=== PATIENT | female | born 1960 | race Caucasian/White ===

== ENCOUNTER → 2024-05-05 | Outpatient (CLI) | payer OTHER, MEDICARE, SELFPAY ==
[2024-05-05 17:33] LABS: Basophils # (Auto) 0.1 Thou/mm3 (0.0-0.2); Basophils % (Auto) 1 % (0-2.5); Eosinophils # (Auto) 0.6 Thou/mm3 (0.0-0.5); Eosinophils % (Auto) 11 % (0-10); Hematocrit 36.6 % (36.0-46.0); Hemoglobin 12.1 g/dL (12.0-16.0); Immature Granulocytes % (Auto) 0 % (0-0); Immature Granulocytes Auto 0.01 Thou/mm3 (0.00-0.00); Lymphocytes # (Auto) 1.8 Thou/mm3 (1.0-4.8); Lymphocytes % (Auto) 32 % (10-50); Mean Corpuscular HGB Conc 33.1 g/dl (31.0-37.0); Mean Corpuscular Hemoglobin 30.3 pg (25.0-35.0); Mean Corpuscular Volume 92 fL (80-100); Monocytes # (Auto) 0.4 Thou/mm3 (0.0-0.8); Monocytes % (Auto) 8 % (0-12); Neutrophils # (Auto) 2.6 Thou/mm3 (1.8-7.7); Neutrophils % (Auto) 48 % (37-80); Nucleated Red Blood Cell % 0 /100 WBC (0); Platelet Count 180 Thou/mm3 (140-440); RDW Standard Deviation 40.9 fL (36.4-46.3); White Blood Count 5.5 Thou/mm3 (3.6-11.0)
[2024-05-05 17:50] LABS: Alanine Aminotransferase 17 U/L (10-49); Albumin, Serum 4.6 gm/dL (3.4-4.8); Alkaline Phosphatase 68 U/L (46-116); Anion Gap 8 (7-16); Aspartate Amino Transferase 16 U/L (0-34); BUN/Creatinine Ratio 19 Ratio (12-20); Bilirubin,Total 0.4 mg/dL (0.3-1.2); Blood Urea Nitrogen 17 mg/dL (9-23); Calcium 9.4 mg/dL (8.3-10.6); Calcium (Corrected) 9.4 mg/dL (8.5-10.1); Carbon Dioxide 30.5 mMol/L (20.0-31.0); Chloride 102 mMol/L (98-107); Creatinine (Component) 0.9 mg/dL (0.6-1.3); Globulin 2.3 gm/dL (2.3-3.5); Glucose 93 mg/dL (74-106); Osmolality,Calculated 280 (275-295); Potassium 3.8 mMol/L (3.4-5.1); Sodium 140 mMol/L (136-145); Total Protein 6.9 gm/dL (5.7-8.2); eGFR > 60 See Note
== END | disposition home or self-care (01) ==
PROVIDERS: PCP Family Medicine; Referring Provider Internal Medicine Hematology & Oncology; Visit Provider Internal Medicine Hematology & Oncology
DX: D72.829 Elevated white blood cell count, unspecified (principal)
CPT/HCPCS: 36415; 80053; 85025

== ENCOUNTER 2024-06-02 22:23 | Emergency (ER) | payer OTHER, MEDICARE, SELFPAY ==
[2024-06-02 22:27] VITALS: BMI 23.2
[2024-06-02 22:42] VITALS: BP 154/99; PULSE 80; RESP 18; TEMP 36.9; O2SAT 96
--- NOTE | 2024-06-02 22:49 | XR_ITS ---
Examination: PA lateral chest 2 views TECHNIQUE: Upright PA and lateral chest 2 views Examination time: June 02, 2024 at 11:04 PM INDICATIONS: Chest pain today. FINDINGS: Normal heart size No pneumonia or pulmonary edema The osseous structures are intact IMPRESSION: No active disease
--- NOTE | 2024-06-02 22:50 | PD.EDRME ---
Rapid Medical Screening Exam RME Arrival date/time: 06/02/24 22:23 64-year-old female with a history of leukemia presents to the emergency room with a chief complaint of shakiness, chest pain, cough, congestion x 1 week. I have greeted and performed a focused initial assessment of this patient. A comprehensive ED assessment and evaluation of the patient, analysis of all test results, and completion of the medical decision making process will be conducted by additional ED providers. Chief Complaint: Flu Like Symptoms Vital signs: Vital Signs Temperature 98.5 F 06/02/24 22:42 Pulse Rate 80 06/02/24 22:42 Respiratory Rate 18 06/02/24 22:42 Blood Pressure 154/99 H 06/02/24 22:42 Pulse Oximetry (%) 96 06/02/24 22:42 Oxygen Delivery Method Room Air 06/02/24 22:42 Vital signs reviewed by provider: Yes
[2024-06-02 23:23] LABS: Basophils # (Auto) 0.1 Thou/mm3 (0.0-0.2); Basophils % (Auto) 2 % (0-2.5); Eosinophils # (Auto) 0.5 Thou/mm3 (0.0-0.5); Eosinophils % (Auto) 9 % (0-10); Hematocrit 37.7 % (36.0-46.0); Hemoglobin 12.6 g/dL (12.0-16.0); Immature Granulocytes % (Auto) 0 % (0-0); Immature Granulocytes Auto 0.01 Thou/mm3 (0.00-0.00); Lymphocytes % (Auto) 34 % (10-50); Mean Corpuscular HGB Conc 33.4 g/dl (31.0-37.0); Mean Corpuscular Hemoglobin 30.3 pg (25.0-35.0); Mean Corpuscular Volume 91 fL (80-100); Monocytes # (Auto) 0.6 Thou/mm3 (0.0-0.8); Monocytes % (Auto) 9 % (0-12); Neutrophils # (Auto) 2.8 Thou/mm3 (1.8-7.7); Neutrophils % (Auto) 46 % (37-80); Nucleated Red Blood Cell % 0 /100 WBC (0); Platelet Count 188 Thou/mm3 (140-440); RDW Standard Deviation 42.6 fL (36.4-46.3); Red Blood Count 4.16 Miln/mm3 (4.00-5.20)
[2024-06-02 23:32] LABS: INR 0.9 (0.9-1.3); Partial Thromboplastin Time 23.1 Seconds (22.0-36.0); Prothrombin Time 10.3 Seconds (9.0-12.2)
[2024-06-02 23:34] LABS: B-Type Natriuretic Peptide 75 pg/mL (0-100)
[2024-06-02 23:35] LABS: Alanine Aminotransferase 14 U/L (10-49); Albumin, Serum 4.7 gm/dL (3.4-4.8); Alkaline Phosphatase 55 U/L (46-116); Anion Gap 7 (7-16); Aspartate Amino Transferase 21 U/L (0-34); BUN/Creatinine Ratio 18 Ratio (12-20); Bilirubin,Total 0.4 mg/dL (0.3-1.2); Blood Urea Nitrogen 16 mg/dL (9-23); Carbon Dioxide 32.1 mMol/L (20.0-31.0); Chloride 104 mMol/L (98-107); Creatinine (Component) 0.9 mg/dL (0.6-1.3); Globulin 2.4 gm/dL (2.3-3.5); Glucose 141 mg/dL (74-106); Osmolality,Calculated 288 (275-295); Potassium 4.3 mMol/L (3.4-5.1); Sodium 143 mMol/L (136-145); Total Protein 7.1 gm/dL (5.7-8.2); Troponin I < 0.020 ng/mL (0.0-0.045); eGFR > 60 See Note
[2024-06-02 23:59] LABS: Collection Type, Urine Clean Catch
[2024-06-03 00:08] LABS: Bilirubin,Urine Negative (Negative); Blood,Urine Trace (Negative); Clarity,Urine Clear (Clear/Hazy); Color,Urine Colorless (Lt Yel-Yel); Glucose, Urine Negative (Negative); Ketones,Urine Negative (Negative); Leukocyte Esterase,Urine Negative (Negative); Nitrite,Urine Negative (Negative); Protein,Urine Negative (Neg - Trace); RBC,Urine 3 /hpf (0-3); Specific Gravity,Urine 1.011 (1.001-1.035); Squamous Epithelial Cell,Urine < 1 /hpf (0-5); Urobilinogen,Urine Negative mg/dL (0.0-1.0); WBC,Urine 2 /hpf (0-5)
--- NOTE | 2024-06-03 00:31 | EDNOTE_ITS ---
Upper Respiratory Inf. RME/HPI General Chief Complaint: Flu Like Symptoms Stated Complaint: Body aches, flu like symptoms Time Seen by Provider: 06/02/24 23:32 Arrival date/time: 06/02/24 22:23 Limitations: no limitations RME / HPI RME / HPI Narrative: 06/02/24 22:23 64-year-old female with a history of leukemia presents to the emergency room with a chief complaint of shakiness, chest pain, cough, congestion x 1 week. I have greeted and performed a focused initial assessment of this patient. A comprehensive ED assessment and evaluation of the patient, analysis of all test results, and completion of the medical decision making process will be conducted by additional ED providers. ----- Dr. Cavazos's Main ED Evaluation: 64yo female with a history of leukemia presents to the ED for complaints of palpitations and shakiness. Patient states she's had sinusitis for the last one month. She states she tool phenylephrine today, which she normally does not take, and she started having palpitations and felt shaky. She also notes having back pain, a headache, dysuria, and sweating. She denies any fever, chills or any other associated symptoms. Related Data Home Medications ?Medication ?Instructions ?Recorded ?Confirmed clonazepam 0.5 mg tablet 1 mg PO QPM Pt #0 tabs 06/23/13 06/04/23 docusate sodium 100 mg capsule 250 mg PO BID Stool softener #0 06/23/13 06/04/23 (Colace) caps levothyroxine 75 mcg tablet 75 mcg PO QDAY Thyroid disorder #0 06/23/13 06/04/23 tabs pregabalin 75 mg capsule (Lyrica) 75 mg PO BID Fibromyalgia #0 caps 06/23/13 06/04/23 simvastatin 20 mg tablet 20 mg PO QPM 05/08/18 06/04/23 clonazepam 0.5 mg tablet 0.5 mg PO 2XD 06/04/23 06/04/23 dasatinib 20 mg tablet (Sprycel) 20 mg PO DAILY 06/04/23 06/04/23 Previous Rx's ?Medication ?Instructions ?Recorded polyethylene glycol 3350 17 17 g PO QDAY #119 grams 05/09/21 gram/dose oral powder (Miralax) clotrimazole 1 % topical cream 1 applic topical TID #30 grams 06/04/23 wheat dextrin 3 gram/3.5 gram oral 3 g PO BID #28 ea 06/04/23 powder packet (Benefiber Clear Sugar Free(dextrin)) peg 3350-electrolytes 236 240 ml PO Q10M #4,000 mL 06/12/23 gram-22.74 gram-6.74 gram-5.86 gram solution (Golytely) amoxicillin 875 mg-potassium 1 tab PO BID #20 tabs 06/03/24 clavulanate 125 mg tablet fluticasone propionate 50 1 spray intranasal BID 10 days #16 06/03/24 mcg/actuation nasal grams spray,suspension (Flonase Allergy Relief) Allergies Allergy/AdvReac Type Severity Reaction Status Date / Time codeine Allergy Severe Hives Verified 06/12/23 06:50 hydromorphone Allergy Severe REDDENED, Verified 06/12/23 06:50 TATIANNA Review of Systems Review of Systems Systems Reviewed: All systems reviewed, normal except as documented ED Exam General Limitations: Present no limitations General appearance: Present alert, in no apparent distress and other (very thin) Head Head exam: Present atraumatic Eye Eye exam: Present normal appearance, PERRL and EOMI ENT ENT exam: Present normal oropharynx, mucous membranes moist and other (mild bilateral maxillary sinus tenderness, no anterior cervical lymphadenopathy; no bloody nose, no trismus) Neck Neck exam: Present normal inspection, full ROM and trachea midline Chest Chest inspection: Present normal inspection and symmetric chest wall rise Respiratory Respiratory exam: Present normal lung sounds bilaterally Cardiovascular Cardiovascular exam: Present regular rate, normal rhythm and normal heart sounds Abdominal Exam Abdominal exam: Present soft; Absent mass Extremities Exam Extremities exam: Present normal inspection and full ROM Back Exam Back exam: Present normal inspection and full ROM Neurological Exam Neurological exam: Present alert, oriented X3, CN II-XII intact, normal gait and other (no facial droop, normal sensations); Absent motor sensory deficit Expanded Neurological Exam Cerebellar function: Normal: finger to nose Motor strength - LUE: 5/5 Motor strength - RUE: 5/5 Motor strength - LLE: 5/5 Motor strength - RLE: 5/5 Psychiatric Psychiatric exam: Present normal affect and normal mood Skin Skin exam: Present warm, dry, intact and pallor (mild) Course Course Course Narrative: CXR is ordered for determining the etiology of palpitations. Quality Measures none Orders Category Date Time Status EKG (ED ONLY) *Do not use* NOW Care 06/02/24 22:49 Completed EKG (ED Only) Stat Exams 06/02/24 22:49 Ordered XR chest 2V Stat Exams 06/02/24 22:49 Completed B-Type Natriuretic Peptide Stat Lab 06/02/24 22:58 Completed CBC Stat Lab 06/02/24 22:58 Completed Comprehensive Metabolic Panel Stat Lab 06/02/24 22:58 Completed Magnesium Stat Lab 06/02/24 22:58 Completed Partial Thromboplastin Time Stat Lab 06/02/24 22:58 Completed Prothrombin Time with INR Stat Lab 06/02/24 22:58 Completed Troponin I Stat Lab 06/02/24 22:58 Completed Urinalysis Stat Lab 06/02/24 23:52 Completed Amoxicillin/Pot Clav 875 [Augmentin 875] Med 06/03/24 00:39 Discontinued 1 tab PO X1 ONE Fluticasone Durga Austin 0.05% [Flonase Nasal Austin 0.05%] Med 06/03/24 00:38 Discontinued 1 spray NASAL X1 ONE Vital Signs Vital signs: Vital Signs Temperature 98.5 F 06/02/24 22:42 Pulse Rate 80 06/02/24 22:42 Respiratory Rate 18 06/02/24 22:42 Blood Pressure 154/99 H 06/02/24 22:42 Pulse Oximetry (%) 96 06/02/24 22:42 Oxygen Delivery Method Room Air 06/02/24 22:42 Pulse ox is 96% on room air, which is normal according to my interpretation. Upper Respiratory Infection Patient data External records reviewed:: [facility] previous records (Per chart review, patient was seen here on 06/12/33 for dehydration; Reviewed outpatient oncology note from 12/10/23.) Clinical information provided by:: patient Social determinants that could affect healthcare access:: none Patient has the following chronic illnesses:: leukemia How is presenting disease/condition affected by chronic disease/condition?: uneffected by Evaluation data The following diagnostics were reviewed and interpreted by me:: lab results, radiology exam(s) and EKG tracing(s) Lab and/or radiology exams considered but not ordered:: none Interpretation Summary: CBC is normal, CMP is normal, Troponin is normal, UA is unremarkble, UDS is positive for marijuana, Blood Alcohol is negative, Bedside COVID and Influenza are negative, according to my interpretation. EKG done at 2257, NSR, rate of 71, norml axis, normal intervals, no ST elevations or depressions, no STEMI, according to my interpretation. ------- [facility] Report Signed Patient: ROSA LOVETT. Record#: [id number] Birthdate: 1960 Age/Sex: 64 / F Location: [facility] Attending Dr: Ordering Physician: Arturo Cortez Date of Service: 06/02/24 Procedure(s): XR chest 2V Accession Number(s): [id number] cc: Arturo Cortez; Arsh Matamoros MD~ Examination: PA lateral chest 2 views TECHNIQUE: Upright PA and lateral chest 2 views Examination time: June 02, 2024 at 11:04 PM INDICATIONS: Chest pain today. FINDINGS: Normal heart size No pneumonia or pulmonary edema The osseous structures are intact IMPRESSION: No active disease Dictated By: Arsh Matamoros MD Signed By: <Electronically signed by Arsh Matamoros MD in OV> 06/02/24 8104 Medications / Prescriptions Medications or Prescriptions considered but not ordered:: none Medication administrations:: Medication Administration History Discontinued Medications Amoxicillin/Clavulanate Potassium (Amoxicillin/Pot Clav 875 Tablet) 1 tab PO X1 ONE Stop: 06/03/24 00:40 Last Admin: 06/03/24 00:46 Dose: 1 tab Documented By: CVL Fluticasone Propionate (Fluticasone Durga Austin 0.05% 16 Gm Btl) 1 spray NASAL X1 ONE Stop: 06/03/24 00:39 see above Consultations Consultation(s) initiated? (list below): No Diagnosis Upper Respiratory Differential Diagnosis: sinusitis and other (cold, URI, medication side effect, palpitations, arrhythmia) Most likely diagnosis given after review of the tests above:: see below Admission Indicated Admission indicated?: not indicated Admission Request Was there a request for admission?: No Disposition Plan Disposition Plan: Discharge Discharge Attestation Discharge Attestation: The patient and all family members were given an opportunity to ask questions and understood the discharge instructions. Discharge instructions specifically effects, indications for sooner follow up or return to the emergency department, and the expected course of current diagnosis. Patient condition: Stable Discharge Plan Plan Patient Disposition: HOME (Self Care) Patient condition on transfer: Stable Prescriptions/Referrals Prescriptions/Med Rec: New amoxicillin-pot clavulanate 875-125 mg tablet 1 tab PO BID Qty: 20 0RF fluticasone propionate [Flonase Allergy Relief] 50 mcg/actuation spray,suspension 1 spray intranasal BID 10 Days Qty: 16 1RF Rx Instructions: administer into each nostril No Action clonazepam 0.5 MG tablet 1 mg PO QPM Qty: 0 levothyroxine 75 mcg Tablet 75 mcg PO QDAY Qty: 0 docusate sodium [Colace] 100 MG capsule 250 mg PO BID Qty: 0 pregabalin [Lyrica] 75 MG capsule 75 mg PO BID Qty: 0 simvastatin 20 mg Tablet 20 mg PO QPM polyethylene glycol 3350 [Miralax] 17 gram/dose powder 17 g PO QDAY Qty: 119 0RF clonazepam 0.5 mg tablet 0.5 mg PO 2XD Patient Comments: TAKE 1 TABLET BY MOUTH TWICE DAILY. DO NOT TAKE WITHIN 1 HOUR OF TAKING SUBOXONE Sprycel 20 mg tablet 20 mg PO DAILY clotrimazole 1 % cream 1 applic topical TID Qty: 30 0RF Rx Instructions: Apply to skin lesion on back Benefiber Clear SF (dextrin) 3 gram/3.5 gram powder in packet 3 g PO BID Qty: 28 0RF Rx Instructions: mix into at least 4 oz water or juice before administering peg 3350-electrolytes [Golytely] 236-22.74-6.74 -5.86 gram recon soln 240 ml PO Q10M Qty: 4000 0RF Rx Instructions: until fecal effluent is clear Referrals: JoseL Chavez MD [Primary Care Provider] - In 1 week Problem List Clinical Impression: Sinusitis Patient/Caregiver Discharge Instructions Education Materials: ED Sinusitis (Antibiotic Treatment) Additional Instructions: 1. Please avoid any cough medicine or ydhy-ujy-cutvffc medicine that has Neosynephrine and Sudafed/phenylephrine. Use the Flonase as directed. 2. Please complete the antibiotic course. 3. Follow-up with your primary care and/or your cancer specialist after antibiotic course. Return to emergency department for worsening symptoms, fever, you feel like you are going to pass out, cannot drink fluids, or any other concerns. Print Language: Kyrgyz Stand Alone Forms: [facility] Award Info., Patient Portal Info Letter
[2024-06-03] MEDS: AMOXICILLIN/POT CLAV 875 TABLET 1 TAB PO (00:46)
[2024-06-03 00:50] VITALS: RESP 18
== END 2024-06-03 00:51 | disposition home or self-care (01) ==
PROVIDERS: Nurse Practitioner Family; Emergency Provider Emergency Medicine; PCP Family Medicine
DX: J32.9 Chronic sinusitis, unspecified (principal)
CPT/HCPCS: 36415; 71046; 80053; 81001; 83735; 83880; 84484; 85025; 85610; 85730; 93005; 99283; A9270

== ENCOUNTER → 2024-07-11 | Outpatient (CLI) | payer OTHER, MEDICARE, SELFPAY ==
[2024-07-11 14:25] LABS: Thyroid Stimulating Hormone 3.26 uIU/mL (0.55-4.78)
[2024-07-17 06:50] LABS: T3,Total* 89 ng/dL (76-181)
== END | disposition home or self-care (01) ==
LOC: COPL 12:54
PROVIDERS: PCP Family Medicine; Referring Provider Nurse Practitioner Family; Visit Provider Nurse Practitioner Family
DX: E03.9 Hypothyroidism, unspecified (principal)
CPT/HCPCS: 36415; 84439; 84443; 84480

== ENCOUNTER 2024-08-01 21:07 | Emergency (ER) | payer OTHER, MEDICARE, SELFPAY ==
[2024-08-01 21:09] VITALS: BMI 22.6
[2024-08-01 21:36] VITALS: BP 168/84; PULSE 71; RESP 18; TEMP 36.6; O2SAT 99
--- NOTE | 2024-08-01 21:46 | XR_ITS ---
Examination: CT abdomen with intravenous contrast CT pelvis with intravenous contrast 2-D coronal reconstructions 2-D sagittal reconstructions Date and time of exam:August 01, 2024 1130 hours Comparison December 01, 2023 INDICATIONS: Abdominal pain nausea vomiting today. CTDI: vol (mGy) 6.35 DLP: (mGycm) 314 Technique: Multiple axial sections of the abdomen and pelvis have been obtained. 64 slice high-resolution scanner used. 3 mm axial sections have been obtained, post intravenous injection 60 cc of Isovue 370 2-D sagittal, coronal reconstructions obtained. Low dose protocols were performed. One or more of the following dose reduction techniques were used; automated exposure control, adjustment of the mA and/or KV according to patient size, use of iterative reconstruction technique. Findings: No focal liver or splenic lesions No gallstones Common bile duct 7 mm No pancreatic mass No renal or ureteral calculi, no hydronephrosis Abdominal aortic calcification no aneurysmal dilatation No pericecal inflammatory change No bowel obstruction Anteverted uterus with areas of uterine fundal calcified fibroid degeneration Bladder intact No adnexal mass Moderate osteopenia IMPRESSION: No current extrahepatic biliary tract dilatation No renal or ureteral calculi, no hydronephrosis No CT findings of appendicitis bowel obstruction or diverticulitis
--- NOTE | 2024-08-01 22:22 | PD.EDNV ---
Nausea/Vomit./Diarrhea-RME/HPI General Chief complaint: Abdominal Pain Stated complaint: Abdominal pain, NV x tonight Time Seen by Provider: 08/01/24 21:44 Arrival date/time: 08/01/24 21:07 64F with history of leukemia (currently on PO chemo meds), marijuana use, anxiety, and hypothyroidism presents to ED with 1 day of L-sided/epigastric ab pain, N/V, and some non-bloody diarrhea. Patient denies CP and SOB. Patient has been taking 10 days of Augmentin for sinusitis and was told to take another [address] Alcala. Limitations: no limitations Related Data Home Medications ?Medication ?Instructions ?Recorded ?Confirmed clonazepam 0.5 mg tablet 1 mg PO QPM Pt #0 tabs 06/23/13 06/04/23 docusate sodium 100 mg capsule 250 mg PO BID Stool softener #0 06/23/13 06/04/23 (Colace) caps levothyroxine 75 mcg tablet 75 mcg PO QDAY Thyroid disorder #0 06/23/13 06/04/23 tabs pregabalin 75 mg capsule (Lyrica) 75 mg PO BID Fibromyalgia #0 caps 06/23/13 06/04/23 simvastatin 20 mg tablet 20 mg PO QPM 05/08/18 06/04/23 clonazepam 0.5 mg tablet 0.5 mg PO 2XD 06/04/23 06/04/23 dasatinib 20 mg tablet (Sprycel) 20 mg PO DAILY 06/04/23 06/04/23 Previous Rx's ?Medication ?Instructions ?Recorded polyethylene glycol 3350 17 17 g PO QDAY #119 grams 05/09/21 gram/dose oral powder (Miralax) clotrimazole 1 % topical cream 1 applic topical TID #30 grams 06/04/23 wheat dextrin 3 gram/3.5 gram oral 3 g PO BID #28 ea 06/04/23 powder packet (Benefiber Clear Sugar Free(dextrin)) peg 3350-electrolytes 236 240 ml PO Q10M #4,000 mL 06/12/23 gram-22.74 gram-6.74 gram-5.86 gram solution (Golytely) amoxicillin 875 mg-potassium 1 tab PO BID #20 tabs 06/03/24 clavulanate 125 mg tablet fluticasone propionate 50 1 spray intranasal BID 10 days #16 06/03/25 mcg/actuation nasal grams spray,suspension (Flonase Allergy Relief) ondansetron 4 mg disintegrating 4 mg PO Q8H PRN nausea and 08/02/24 tablet vomiting #30 tabs Allergies Allergy/AdvReac Type Severity Reaction Status Date / Time codeine Allergy Severe Hives Verified 06/12/23 06:50 hydromorphone Allergy Severe REDDENED, Verified 06/12/23 06:50 [email or web address] Review of Systems Review of Systems Systems Reviewed: All systems reviewed, normal except as documented Constitutional Constitutional: Reports system reviewed and no additional complaints, except as documented, Denies fever(s) and Denies headache(s) ENT Ears, Nose, Mouth, and Throat: Denies disequilibrium and Denies headache(s) Cardiovascular Cardiovascular: Reports system reviewed and no additional complaints, except as documented, Denies chest pain and Denies dyspnea Respiratory Respiratory: Reports system reviewed and no additional complaints, except as documented, Denies cough and Denies dyspnea Gastrointestinal Gastrointestinal: Reports system reviewed and no additional complaints, except as documented, Reports as per HPI, Reports abdominal pain, Reports diarrhea, Reports nausea and Reports vomiting Neurologic Neurologic: Reports system reviewed and no additional complaints, except as documented, Denies confusion, Denies disequilibrium and Denies headache(s) Psychiatric Psychiatric: Denies confusion Past Medical History Past Medical History NEUROLOGIC: Positive Neurological Disorders, Migraine and Head Trauma; Negative Seizures CARDIAC: Positive Cardiac Disorders, Myocardial Infarction, Hypercholesterolemia, Deep Vein Thrombosis and Hypertension; Negative Congestive Heart Failure RESPIRATORY: Negative Chronic Obstructive Pulmonary Disease (COPD) or Asthma GASTROINTESTINAL: Positive Gastrointestinal Disorders, Gastrointestinal Bleed, Diverticulitis, Diverticulosis, Obstructive Bowel, Hemorrhoids and Gastroesophageal Reflux Disease; Negative Hepatitis or Colorectal Cancer GENITOURINARY: Positive Genitourinary Disorders; Negative Renal Disease REPRODUCTIVE: Positive Previous Pregnancies; Negative Breast Cancer, Genital Herpes, Gonorrhea or Syphilis MUSCULOSKELETAL: Positive Musculoskeletal Disorders, Degenerative Disk Disease and Fibromyalgia; Negative Bone Cancer ENT: Positive Deafness and Head Trauma ENDOCRINE: Positive Endocrine Disorders and Hypothyroidism; Negative Diabetes Mellitus Type 1 or Diabetes Mellitus Type 2 HEMATOLOGIC: Positive Blood Disorders, Anemia and Leukemia; Negative Hemophilia, Thalassemia, Sickle Cell Disease or Clotting Problems PSYCHO/SOCIAL: Positive Depression and Anxiety OTHER HISTORY: Positive Shingles, Blood Transfusions, Chicken Pox, Measles, Mumps and Cancer; Negative Hospitalization, Autoimmune Disease, Down Syndrome, Developmental Delay, Falls, Blood Transfusion Reaction, Anesthesia Reactions, Organ Transplant, Chemotherapy, Radiation Therapy, Hyperbaric Therapy, MRSA, VRSA, Vancomycin-Resistant Enterococci, Human Immunodeficiency Virus (HIV), Rubella (Uzbek Measles), Pertussis, Clostridium Difficile, Breast Cancer, Cervical Cancer, Colorectal Cancer, Lung Cancer or Ovarian Cancer Family History FAMILY HISTORY: Positive Family Psychiatric Problems, Family Cardiac Disorders and Family Gastrointestinal Problems; Negative Family Respiratory Disorders, Family Cancer, Family Surgery or Family Anesthesia Reaction Surgical History SURGICAL: Positive Section; Negative Organ Transplant Social History SMOKING STATUS: Never smoker ED Exam General Limitations: Present no limitations General appearance: Present alert and in no apparent distress Head Head exam: Present atraumatic Eye Eye exam: Present normal appearance, PERRL and EOMI ENT ENT exam: Present normal exam, normal oropharynx and mucous membranes moist Neck Neck exam: Present normal inspection, full ROM and trachea midline Chest Chest inspection: Present normal inspection and symmetric chest wall rise Respiratory Respiratory exam: Present normal lung sounds bilaterally Cardiovascular Cardiovascular exam: Present regular rate, normal rhythm and normal heart sounds Abdominal Exam Abdominal exam: Present soft and normal bowel sounds Extremities Exam Extremities exam: Present normal inspection and full ROM Back Exam Back exam: Present normal inspection and full ROM Neurological Exam Neurological exam: Present alert, oriented X3 and CN II-XII intact Psychiatric Psychiatric exam: Present normal affect and normal mood Skin Skin exam: Present warm, dry, intact and normal color Course Quality Measures none Orders Category Date Time Status CT Screening NOW Care 08/01/24 21:47 Completed Insert IV NOW Care 08/01/24 21:[address] abdomen pelvis w con Stat Exams 08/01/24 21:46 Completed CBC Stat Lab 08/01/24 22:25 Completed CMP [Comprehensive Metabolic Panel] Stat Lab 08/01/24 22:25 Completed Lactate (Lactic Acid) Stat Lab 08/01/24 22:25 Completed Lipase Stat Lab 08/01/24 22:25 Completed Procalcitonin Stat Lab 08/01/24 22:25 Completed Urinalysis, C/S if Indicated Stat Lab 08/01/24 23:01 Completed Diazepam Inj [Valium Inj] Med 08/01/24 23:04 Discontinued 5 mg IVP X1 ONE Diazepam [Valium] Med 08/02/24 02:23 Discontinued 10 mg PO X1 ONE DiphenhydrAMINE INJ [Benadryl Inj] Med 08/02/24 00:49 Discontinued 12.5 mg IVP X1 ONE Famotidine [Pepcid] Med 08/02/24 00:49 Discontinued 40 mg PO X1 ONE Ketorolac Inj [Toradol Inj] Med 08/01/24 22:13 Discontinued 15 mg IVP X1 ONE Lidocaine 2% Viscous [Xylocaine 2% Viscous] Med 08/02/24 02:23 Discontinued 15 ml PO X1 ONE Metoclopramide Inj [Reglan Inj] Med 08/02/24 00:49 Discontinued 10 mg IVP X1 ONE Ondansetron Inj [Zofran Inj] Med 08/01/24 21:47 Discontinued 4 mg IV X1 ONE Potassium Chloride [K-Dur] Med 08/01/24 23:23 Discontinued 40 meq PO X1 ONE Sodium Chloride 0.9% 1000 ml [Ns] 1,000 ml Med 08/01/24 21:47 Discontinued IV 999 mls/hr mg Hyd/Al Hyd/Nina Susp [Maalox Susp] Med 08/02/24 00:49 Discontinued 30 ml PO X1 ONE Vital Signs Vital signs: Vital Signs Temperature 97.9 F 08/01/24 21:36 Pulse Rate 71 08/01/24 21:36 Respiratory Rate 18 08/01/24 21:36 Blood Pressure 168/84 H 08/01/24 21:36 Pulse Oximetry (%) 99 08/01/24 21:36 Oxygen Delivery Method Room Air 08/01/24 21:36 O2 at 99% on RA and WNLs Nausea/Vomiting/Diarrhea MDM Narrative MDM Narrative:: 64F with history of leukemia (currently on PO chemo meds), marijuana use, anxiety, and hypothyroidism presents to ED with 1 day of L-sided/epigastric ab pain, N/V, and some non-bloody diarrhea. Patient denies CP and SOB. Patient has been taking 10 days of Augmentin for sinusitis and was told to take another [address] Alcala. Physical exam reveals mild gen ab tenderness. Patient is afebrile, alert, but appears to be in pain and is anxious. Due to previous fentanyl OD/misuse, patient does not want any opioids. CT unremarkable. No leukocytosis. Procal/lactate normal. Mildly low K, repleted; likely due to N/V. UA clean. Symptoms likely due to side-effect from chemo meds, Augmentin, and marijuana use. Meds improved symptoms. Patient data External records reviewed:: [facility] previous records Clinical information provided by:: patient Social determinants that could affect healthcare access:: mental health (anxiety) Patient has the following chronic illnesses:: leukemia and hypothyroidism How is presenting disease/condition affected by chronic disease/condition?: exacerbated by Evaluation data The following diagnostics were reviewed and interpreted by me:: lab results and radiology exam(s) Lab and/or radiology exams considered but not ordered:: ordered Interpretation Summary: above Medications / Prescriptions Medications / Prescriptions considered but not ordered:: ordered Medication administrations:: Medication Administration History Discontinued Medications Al Hydrox/Mg Hydrox/Simethicone (Mg Hyd/Al Hyd/Nina (Maalox Reg) Susp 30 Ml Udc) 30 ml PO X1 ONE Stop: 08/02/24 00:50 Last Admin: 08/02/24 01:16 Dose: 30 ml Documented By: WILL Diazepam (Diazepam Inj 5 Mg/Ml Vial 2 Ml) 5 mg IVP X1 ONE Stop: 08/01/24 23:05 Last Admin: 08/01/24 23:18 Dose: 5 mg Documented By: LUIS Diazepam (Diazepam 5 Mg Tablet) 10 mg PO X1 ONE Stop: 08/02/24 02:24 Last Admin: 08/02/24 02:30 Dose: 10 mg Documented By: WILL Diphenhydramine HCl (Diphenhydramine Inj 50 Mg/Ml Vial) 12.5 mg IVP X1 ONE Stop: 08/02/24 00:50 Last Admin: 08/02/24 01:15 Dose: 12.5 mg Documented By: WILL Famotidine (Famotidine 20 Mg Tablet) 40 mg PO X1 ONE Stop: 08/02/24 00:50 Last Admin: 08/02/24 01:15 Dose: 40 mg Documented By: WILL Sodium Chloride (Ns) 1,000 mls @ 999 mls/hr IV .Q1H1M ONE Stop: 08/01/24 22:47 Last Infusion: 08/01/24 23:26 Dose: Infused Documented By: Admin: 08/01/24 22:25 Dose: 999 mls/hr Documented By: WILL Ketorolac Tromethamine (Ketorolac Inj 30 Mg/Ml Vial) 15 mg IVP X1 ONE Stop: 08/01/24 22:14 Last Admin: 08/01/24 22:29 Dose: 15 mg Documented By: WILL Lidocaine HCl (Lidocaine Viscous 2% 15 Ml Udc) 15 ml PO X1 ONE Stop: 08/02/24 02:24 Last Admin: 08/02/24 02:31 Dose: 15 ml Documented By: WILL Metoclopramide HCl (Metoclopramide Inj 5 Mg/Ml Vial 2 Ml) 10 mg IVP X1 ONE; Protocol Stop: 08/02/24 00:50 Last Admin: 08/02/24 01:15 Dose: 10 mg Documented By: WILL Ondansetron HCl (Ondansetron Inj 2 Mg/Ml Inj 2 Ml) 4 mg IV X1 ONE; Protocol Stop: 08/01/24 21:48 Last Admin: 08/01/24 22:25 Dose: 4 mg Documented By: WILL Potassium Chloride (Potassium Chloride 20 Meq Tabcr) 40 meq PO X1 ONE Stop: 08/01/24 23:24 Last Admin: 08/01/24 23:53 Dose: 40 meq Documented By: WILL above Consultations Consultation(s) initiated? (list below): No Diagnosis Nausea Differential Diagnosis: traveler's diarrhea, food poisoning, gastroenteritis, clostridium difficile infection, drug-induced nausea and vomiting and dehydration Most likely diagnosis given after review of the tests above:: drug adverse effect Admission Indicated Admission indicated?: not indicated Admission Request Was there a request for admission?: No Disposition Plan Disposition Plan: Discharge Discharge Attestation Discharge Attestation: The patient and all family members were given an opportunity to ask questions and understood the discharge instructions. Discharge instructions specifically effects, indications for sooner follow up or return to the emergency department, and the expected course of current diagnosis. Patient condition: Stable Discharge Plan Plan Patient Disposition: HOME (Self Care) Disposition Comment: Stable Prescriptions/Referrals Prescriptions/Med Rec: New ondansetron 4 mg tablet,disintegrating 4 mg PO Q8H PRN (Reason: nausea and vomiting) Qty: 30 0RF No Action clonazepam 0.5 MG tablet 1 mg PO QPM Qty: 0 levothyroxine 75 mcg Tablet 75 mcg PO QDAY Qty: 0 docusate sodium [Colace] 100 MG capsule 250 mg PO BID Qty: 0 pregabalin [Lyrica] 75 MG capsule 75 mg PO BID Qty: 0 simvastatin 20 mg Tablet 20 mg PO QPM polyethylene glycol 3350 [Miralax] 17 gram/dose powder 17 g PO QDAY Qty: 119 0RF clonazepam 0.5 mg tablet 0.5 mg PO 2XD Patient Comments: TAKE 1 TABLET BY MOUTH TWICE DAILY. DO NOT TAKE WITHIN 1 HOUR OF TAKING SUBOXONE Sprycel 20 mg tablet 20 mg PO DAILY clotrimazole 1 % cream 1 applic topical TID Qty: 30 0RF Rx Instructions: Apply to skin lesion on back Benefiber Clear SF (dextrin) 3 gram/3.5 gram powder in packet 3 g PO BID Qty: 28 0RF Rx Instructions: mix into at least 4 oz water or juice before administering peg 3350-electrolytes [Golytely] 236-22.74-6.74 -5.86 gram recon soln 240 ml PO Q10M Qty: 4000 0RF Rx Instructions: until fecal effluent is clear amoxicillin-pot clavulanate 875-125 mg tablet 1 tab PO BID Qty: 20 0RF fluticasone propionate [Flonase Allergy Relief] 50 mcg/actuation spray,suspension 1 spray intranasal BID 10 Days Qty: 16 1RF Rx Instructions: administer into each nostril Referrals: No Primary/Family,Physician [Primary Care Provider] - In 1 week Problem List Clinical Impression: Adverse drug effect Patient/Caregiver Discharge Instructions Education Materials: ED Drug Reaction, Other Additional Instructions: Please follow-up with PCP within 24-48 hours and return immediately if symptoms worsen. Print Language: Swedish Stand Alone Forms: Patient Portal Info Letter PA/SLAUGHTERER [employer]IGI[employer]UAL Supervising Physician CAMILA/RONDA Supervising Physician: Dr. Castro
[2024-08-01] MEDS: ONDANSETRON INJ 2 MG/ML INJ 2 ML 4 MG IV (22:25)
[2024-08-01] MEDS: SODIUM CHLORIDE 0.9% 1000 ML 1,000 ML 999 ML IV (22:25)
[2024-08-01] MEDS: KETOROLAC INJ 30 MG/ML VIAL 15 MG IVP (22:29)
[2024-08-01 22:46] LABS: Lactate (Lactic Acid) 1.1 mMol/L (0.4-2.0)
[2024-08-01 22:47] LABS: Basophils # (Auto) 0.1 Thou/mm3 (0.0-0.2); Basophils % (Auto) 1 % (0-2.5); Eosinophils # (Auto) 0.2 Thou/mm3 (0.0-0.5); Eosinophils % (Auto) 2 % (0-10); Hematocrit 39.4 % (36.0-46.0); Immature Granulocytes % (Auto) 0 % (0-0); Immature Granulocytes Auto 0.02 Thou/mm3 (0.00-0.00); Lymphocytes # (Auto) 1.4 Thou/mm3 (1.0-4.8); Lymphocytes % (Auto) 18 % (10-50); Mean Corpuscular HGB Conc 35.5 g/dl (31.0-37.0); Mean Corpuscular Hemoglobin 30.2 pg (25.0-35.0); Mean Corpuscular Volume 85 fL (80-100); Monocytes # (Auto) 0.5 Thou/mm3 (0.0-0.8); Monocytes % (Auto) 7 % (0-12); Neutrophils # (Auto) 5.4 Thou/mm3 (1.8-7.7); Neutrophils % (Auto) 71 % (37-80); Nucleated Red Blood Cell % 0 /100 WBC (0); Platelet Count 207 Thou/mm3 (140-440); RDW Standard Deviation 40.2 fL (36.4-46.3); Red Blood Count 4.63 Miln/mm3 (4.00-5.20); White Blood Count 7.6 Thou/mm3 (3.6-11.0)
[2024-08-01 23:04] LABS: Collection Type, Urine Clean Catch
[2024-08-01 23:17] LABS: Bacteria,Urine Rare; Bilirubin,Urine Negative (Negative); Blood,Urine 1+ (Negative); Clarity,Urine Turbid (Clear/Hazy); Color,Urine Lt-Yellow (Lt Yel-Yel); Culture Indicated,Urine Not Indicated; Glucose, Urine Negative (Negative); Ketones,Urine Trace (Negative); Leukocyte Esterase,Urine Positive (Negative); Nitrite,Urine Negative (Negative); PH,Urine 7.5 (5.0-7.0); Protein,Urine Negative (Neg - Trace); RBC,Urine 1 /hpf (0-3); Specific Gravity,Urine 1.015 (1.001-1.035); Squamous Epithelial Cell,Urine 1 /hpf (0-5); Urobilinogen,Urine Negative mg/dL (0.0-1.0); WBC,Urine 2 /hpf (0-5)
[2024-08-01 23:17] LABS: Alanine Aminotransferase 9 U/L (10-49); Albumin, Serum 5.1 gm/dL (3.4-4.8); Albumin/Globulin Ratio 1.7 (1.2-2.2); Alkaline Phosphatase 51 U/L (46-116); Anion Gap 11 (7-16); Aspartate Amino Transferase 25 U/L (0-34); BUN/Creatinine Ratio 16 Ratio (12-20); Bilirubin,Total 0.6 mg/dL (0.3-1.2); Blood Urea Nitrogen 11 mg/dL (9-23); Calcium 10.5 mg/dL (8.3-10.6); Calcium (Corrected) 10.5 mg/dL (8.5-10.1); Carbon Dioxide 27.3 mMol/L (20.0-31.0); Chloride 99 mMol/L (98-107); Creatinine (Component) 0.7 mg/dL (0.6-1.3); Estimated Creatinine Clearance 60.5 mL/min (>60); Glucose 103 mg/dL (74-106); Lipase 35 U/L (12-53); Osmolality,Calculated 273 (275-295); Potassium 3.2 mMol/L (3.4-5.1); Procalcitonin 0.05 ng/ml (0.0-0.49); Sodium 137 mMol/L (136-145); Total Protein 8.1 gm/dL (5.7-8.2); eGFR > 60 See Note
[2024-08-01] MEDS: DIAZEPAM INJ 5 MG/ML VIAL 2 ML IVP (23:18)
[2024-08-01] MEDS: POTASSIUM CHLORIDE 20 mEq TABCR 40 MEQ PO (23:53)
[2024-08-02 00:43] VITALS: BP 136/75; PULSE 84; RESP 16; TEMP 36.6; O2SAT 99
[2024-08-02] MEDS: DiphenhydrAMINE INJ 50 MG/ML VIAL 12.5 MG IVP (01:15)
[2024-08-02] MEDS: FAMOTIDINE 20 MG TABLET 40 MG PO (01:15)
[2024-08-02] MEDS: METOCLOPRAMIDE INJ 5 MG/ML VIAL 2 ML 10 MG IVP (01:15)
[2024-08-02] MEDS: MG HYD/AL HYD/SIME (Maalox Reg) SUSP 30 ML UDC PO (01:16)
--- NOTE | 2024-08-02 02:21 | PC.NURSE ---
Provider at bedside speaking with patient.
[2024-08-02] MEDS: DIAZEPAM 5 MG TABLET 10 MG PO (02:30)
[2024-08-02] MEDS: LIDOCAINE VISCOUS 2% 15 ML UDC PO (02:31)
[2024-08-02 02:40] VITALS: BP 165/89; PULSE 86; RESP 18; TEMP 36.8; O2SAT 98
== END 2024-08-02 02:42 | disposition home or self-care (01) ==
PROVIDERS: Physician Assistant; Emergency Provider Emergency Medicine
DX: R10.13 Epigastric pain (principal); T50.905A Adverse effect of unspecified drugs, medicaments and biological substances, initial encounter; R11.2 Nausea with vomiting, unspecified; E03.9 Hypothyroidism, unspecified; F41.9 Anxiety disorder, unspecified; Z85.6 Personal history of leukemia
CPT/HCPCS: 36415; 74177; 80053; 81001; 83605; 83690; 84145; 85025; 96361; 96374; 96375; 96376; 99285; A4649; J1200; J1885; J2405; J2765; J3360; J3490; J7030; Q9967; A9270

== ENCOUNTER → 2024-08-14 | Outpatient (CLI) | payer OTHER, MEDICARE, SELFPAY ==
[2024-08-14 14:24] LABS: Basophils # (Auto) 0.1 Thou/mm3 (0.0-0.2); Basophils % (Auto) 2 % (0-2.5); Eosinophils # (Auto) 0.2 Thou/mm3 (0.0-0.5); Eosinophils % (Auto) 4 % (0-10); Hematocrit 39.8 % (36.0-46.0); Hemoglobin 13.3 g/dL (12.0-16.0); Immature Granulocytes % (Auto) 0 % (0-0); Lymphocytes # (Auto) 1.9 Thou/mm3 (1.0-4.8); Lymphocytes % (Auto) 37 % (10-50); Mean Corpuscular HGB Conc 33.4 g/dl (31.0-37.0); Mean Corpuscular Hemoglobin 29.8 pg (25.0-35.0); Mean Corpuscular Volume 89 fL (80-100); Monocytes # (Auto) 0.4 Thou/mm3 (0.0-0.8); Monocytes % (Auto) 9 % (0-12); Neutrophils # (Auto) 2.6 Thou/mm3 (1.8-7.7); Neutrophils % (Auto) 49 % (37-80); Nucleated Red Blood Cell % 0 /100 WBC (0); Platelet Count 216 Thou/mm3 (140-440); RDW Standard Deviation 42.2 fL (36.4-46.3); Red Blood Count 4.47 Miln/mm3 (4.00-5.20); White Blood Count 5.2 Thou/mm3 (3.6-11.0)
[2024-08-14 14:33] LABS: Glucose Estimated Average 97 mg/dL (80-131)
[2024-08-14 14:51] LABS: Alanine Aminotransferase 11 U/L (10-49); Albumin, Serum 4.5 gm/dL (3.4-4.8); Albumin/Globulin Ratio 1.9 (1.2-2.2); Alkaline Phosphatase 52 U/L (46-116); Anion Gap 6 (7-16); Aspartate Amino Transferase 22 U/L (0-34); BUN/Creatinine Ratio 28 Ratio (12-20); Bilirubin,Total 0.6 mg/dL (0.3-1.2); Blood Urea Nitrogen 22 mg/dL (9-23); Calcium 9.7 mg/dL (8.3-10.6); Calcium (Corrected) 9.7 mg/dL (8.5-10.1); Carbon Dioxide 29.8 mMol/L (20.0-31.0); Cardiac Risk Estimate 2.6 RATIO (3.7-5.6); Chloride 107 mMol/L (98-107); Cholesterol 174 mg/dL (132-200); Creatinine (Component) 0.8 mg/dL (0.6-1.3); Globulin 2.4 gm/dL (2.3-3.5); Glucose 84 mg/dL (74-106); HDL Cholesterol 67 mg/dL (40-60); LDL Cholesterol,Calculated 89 mg/dL (0-130); Osmolality,Calculated 287 (275-295); Sodium 143 mMol/L (136-145); Thyroid Stimulating Hormone 0.18 uIU/mL (0.55-4.78); Total Protein 6.9 gm/dL (5.7-8.2); Triglycerides 88 mg/dL (30-150); eGFR > 60 See Note
[2024-08-18 06:55] LABS: P210 BCR-ABL1 NOT DETECTED
== END | disposition home or self-care (01) ==
LOC: COPL 13:40
PROVIDERS: PCP Family Medicine; Referring Provider Internal Medicine Hematology & Oncology; Visit Provider Internal Medicine Hematology & Oncology
DX: E78.2 Mixed hyperlipidemia (principal); E03.9 Hypothyroidism, unspecified; R73.01 Impaired fasting glucose; I10 Essential (primary) hypertension; C92.10 Chronic myeloid leukemia, BCR/ABL-positive, not having achieved remission
CPT/HCPCS: 36415; 80053; 80061; 81206; 83036; 84443; 85025

== ENCOUNTER 2024-08-16 07:45 | Emergency (ER) | payer OTHER, MEDICARE, SELFPAY ==
[2024-08-16 07:47] VITALS: BMI 23.6
[2024-08-16 08:06] VITALS: BP 147/82; PULSE 67; RESP 20; TEMP 36.6; O2SAT 98; BMI 23.4
[2024-08-16 08:44] VITALS: BP 152/85; PULSE 67; RESP 18; TEMP 36.7; O2SAT 98
--- NOTE | 2024-08-16 09:50 | PD.EDABDPN ---
ED Abdominal Pain RME/HPI General Chief Complaint: Abdominal Pain Stated complaint: ABD PAIN WITH RECTAL PAIN, HX OF COLOSTOMY Arrival date/time: 08/16/24 07:45 RME / HPI RME / HPI narrative: DR. MARLOW MAIN ED EVALUATION: 64 year old female presents to the Emergency Department with complaints of abdominal pain, constipation, and rectal pain. Pain is described as cramping and rated moderate in severity. She states her cancer doctor recently told her he thyroid levels were elevated possibly from too much thyroid medication and she is very concerned that this is the cause of her symptoms. She denies any vomiting but states she is nauseated and experienced some dry heaving. PMHx: Leukemia Social Hx: No tobacco, alcohol, or substance use. Related Data Home Medications ?Medication ?Instructions ?Recorded ?Confirmed clonazepam 0.5 mg tablet 1 mg PO QPM Pt #0 tabs 06/23/13 06/04/23 docusate sodium 100 mg capsule 250 mg PO BID Stool softener #0 06/23/13 06/04/23 (Colace) caps levothyroxine 75 mcg tablet 75 mcg PO QDAY Thyroid disorder #0 06/23/13 06/04/23 tabs pregabalin 75 mg capsule (Lyrica) 75 mg PO BID Fibromyalgia #0 caps 06/23/13 06/04/23 simvastatin 20 mg tablet 20 mg PO QPM 05/08/18 06/04/23 clonazepam 0.5 mg tablet 0.5 mg PO 2XD 06/04/23 06/04/23 dasatinib 20 mg tablet (Sprycel) 20 mg PO DAILY 06/04/23 06/04/23 Previous Rx's ?Medication ?Instructions ?Recorded polyethylene glycol 3350 17 17 g PO QDAY #119 grams 05/09/21 gram/dose oral powder (Miralax) clotrimazole 1 % topical cream 1 applic topical TID #30 grams 06/04/23 wheat dextrin 3 gram/3.5 gram oral 3 g PO BID #28 ea 06/04/23 powder packet (Benefiber Clear Sugar Free(dextrin)) peg 3350-electrolytes 236 240 ml PO Q10M #4,000 mL 06/12/23 gram-22.74 gram-6.74 gram-5.86 gram solution (Golytely) amoxicillin 875 mg-potassium 1 tab PO BID #20 tabs 06/03/24 clavulanate 125 mg tablet fluticasone propionate 50 1 spray intranasal BID 10 days #16 06/03/24 mcg/actuation nasal grams spray,suspension (Flonase Allergy Relief) ondansetron 4 mg disintegrating 4 mg PO Q8H PRN nausea and 08/02/24 tablet vomiting #30 tabs Allergies Allergy/AdvReac Type Severity Reaction Status Date / Time codeine Allergy Severe Hives Verified 08/16/24 07:50 hydromorphone Allergy Severe REDDENED, Verified 08/16/24 07:50 WELTS Review of Systems Review of Systems Systems Reviewed: All systems reviewed, normal except as documented Past Medical History Past Medical History NEUROLOGIC: Positive Neurological Disorders, Migraine and Head Trauma CARDIAC: Positive Cardiac Disorders, Myocardial Infarction, Hypercholesterolemia, Deep Vein Thrombosis and Hypertension GASTROINTESTINAL: Positive Gastrointestinal Disorders, Gastrointestinal Bleed, Diverticulitis, Diverticulosis, Obstructive Bowel, Hemorrhoids and Gastroesophageal Reflux Disease GENITOURINARY: Positive Genitourinary Disorders REPRODUCTIVE: Positive Previous Pregnancies MUSCULOSKELETAL: Positive Musculoskeletal Disorders, Degenerative Disk Disease and Fibromyalgia ENT: Positive Deafness and Head Trauma ENDOCRINE: Positive Endocrine Disorders and Hypothyroidism HEMATOLOGIC: Positive Blood Disorders, Anemia and Leukemia PSYCHO/SOCIAL: Positive Depression and Anxiety OTHER HISTORY: Positive Shingles, Blood Transfusions, Chicken Pox, Measles, Mumps and Cancer Family History FAMILY HISTORY: Positive Family Psychiatric Problems, Family Cardiac Disorders and Family Gastrointestinal Problems Surgical History SURGICAL: Positive Section Social History SMOKING STATUS: Never smoker SUBSTANCE USE: does not use ALCOHOL: Never ED Exam Narrative Physical exam: GENERAL APPEARANCE: alert and oriented x 4, well-developed, well-nourished, no acute distress VITALS: All vitals were reviewed and the pulse ox is 98% on room air, which is normal according to my interpretation. HEENT: Normocephalic, atraumatic; pupils equal, round, reactive to light; EOMI; mucous membranes pink, moist; oropharynx clear NECK: Supple LUNGS: CTABL; no wheezes, no rales, no rhonchi HEART: Regular rate, regular rhythm; normal S1, S2; no murmurs ABDOMEN: normal BS; palpatino of stools in the abdomen, no rebound; no masses, no organomegaly, no hernia BACK: no CVA tenderness EXTREMITIES: atraumatic; no edema NEUROLOGIC: awake; alert and oriented x4; cranial nerves II-XII grossly intact; no focal sensory or motor deficits PSYCHIATRIC: appropriate mood and affect SKIN: warm, dry, normal color; no rashes Course Quality Measures none Orders Category Date Time Status XR abdomen series w chest 1V Stat Exams 08/16/24 10:01 Completed CBC Stat Lab 08/16/24 10:30 Completed Comprehensive Metabolic Panel Stat Lab 08/16/24 10:30 Completed Free T4 (Free Thyroxine) Stat Lab 08/16/24 10:30 Completed Lipase Stat Lab 08/16/24 10:30 Completed Magnesium Stat Lab 08/16/24 10:30 Completed TSH [Thyroid Stimulating Hormone] Stat Lab 08/16/24 10:30 Completed Troponin I Stat Lab 08/16/24 10:30 Completed UA, C/S IF [Urinalysis, C/S if Indicated] Stat Lab 08/16/24 10:10 Completed Vital Signs Vital signs: Vital Signs Temperature 97.8 F 08/16/24 08:06 Pulse Rate 67 08/16/24 08:06 Respiratory Rate 20 08/16/24 08:06 Blood Pressure 147/82 H 08/16/24 08:06 Pulse Oximetry (%) 98 08/16/24 08:06 Oxygen Delivery Method Room Air 08/16/24 08:06 Abdominal Pain MDM MDM Narrative MDM Narrative:: I, Kell Quinonez am scribing for and in the presence of Dr. Marlow. Patient data External records reviewed:: [facility] previous records (Reviewed last oncology note by Dr. Tena, dated 08/15/24. ) Clinical information provided by:: patient Social determinants that could affect healthcare access:: none Patient has the following chronic illnesses:: leukemia How is presenting disease/condition affected by chronic disease/condition?: exacerbated by Evaluation data The following diagnostics were reviewed and interpreted by me:: lab results and radiology exam(s) Lab and/or radiology exams considered but not ordered:: none Interpretation Summary: Procedure(s): XR abdomen series w chest 1V Accession Number(s): [id number] cc: Jose L Chavez MD; Arsh Matamoros MD; Meme Marlow MD~ Examination: Abdomen series 3 views including upright PA chest Technique: Upright PA chest AP upright AP supine abdomen 3 views Exam date and time: August 16, 2024 1012 hrs. Indications: Abdominal pain and rectal pain today Findings: Normal heart size Lungs are clear. Nonobstructive bowel gas pattern No free air Moderate stool throughout the colon Impression: Nonobstructive bowel gas pattern Dictated By: Arsh Matamoros MD Medications / Prescriptions Medications or Prescriptions considered but not ordered:: none Medication administrations:: see above if any Consultations Consultation(s) initiated? (list below): No Diagnosis Differential diagnosis abdominal pain: abdominal pain, constipation and small bowel obstruction Most likely diagnosis given after review of the tests above:: Abdominal pain Admission Indicated Admission indicated?: not indicated Admission Request Was there a request for admission?: No Disposition Plan Disposition Plan: Discharge Discharge Attestation Discharge Attestation: The patient and all family members were given an opportunity to ask questions and understood the discharge instructions. Discharge instructions specifically effects, indications for sooner follow up or return to the emergency department, and the expected course of current diagnosis. Patient condition: Stable Discharge Plan Plan Patient Disposition: HOME (Self Care) Prescriptions/Referrals Prescriptions/Med Rec: No Action clonazepam 0.5 MG tablet 1 mg PO QPM Qty: 0 levothyroxine 75 mcg Tablet 75 mcg PO QDAY Qty: 0 docusate sodium [Colace] 100 MG capsule 250 mg PO BID Qty: 0 pregabalin [Lyrica] 75 MG capsule 75 mg PO BID Qty: 0 simvastatin 20 mg Tablet 20 mg PO QPM polyethylene glycol 3350 [Miralax] 17 gram/dose powder 17 g PO QDAY Qty: 119 0RF clonazepam 0.5 mg tablet 0.5 mg PO 2XD Patient Comments: TAKE 1 TABLET BY MOUTH TWICE DAILY. DO NOT TAKE WITHIN 1 HOUR OF TAKING SUBOXONE Sprycel 20 mg tablet 20 mg PO DAILY clotrimazole 1 % cream 1 applic topical TID Qty: 30 0RF Rx Instructions: Apply to skin lesion on back Benefiber Clear SF (dextrin) 3 gram/3.5 gram powder in packet 3 g PO BID Qty: 28 0RF Rx Instructions: mix into at least 4 oz water or juice before administering ondansetron 4 mg tablet,disintegrating 4 mg PO Q8H PRN (Reason: nausea and vomiting) Qty: 30 0RF peg 3350-electrolytes [Golytely] 236-22.74-6.74 -5.86 gram recon soln 240 ml PO Q10M Qty: 4000 0RF Rx Instructions: until fecal effluent is clear amoxicillin-pot clavulanate 875-125 mg tablet 1 tab PO BID Qty: 20 0RF fluticasone propionate [Flonase Allergy Relief] 50 mcg/actuation spray,suspension 1 spray intranasal BID 10 Days Qty: 16 1RF Rx Instructions: administer into each nostril Referrals: Jose L Chavez MD [Primary Care Provider] - In 1 week Problem List Clinical Impression: Abdominal pain Patient/Caregiver Discharge Instructions Education Materials: ED Abdominal Pain Unkn Cause Fem Print Language: Bur[place]ian Stand Alone Forms: [facility] Award Info., Patient Portal Info Letter
--- NOTE | 2024-08-16 10:01 | XR_ITS ---
Examination: Abdomen series 3 views including upright PA chest Technique: Upright PA chest AP upright AP supine abdomen 3 views Exam date and time: August 16, 2024 1012 hrs. Indications: Abdominal pain and rectal pain today Findings: Normal heart size Lungs are clear. Nonobstructive bowel gas pattern No free air Moderate stool throughout the colon Impression: Nonobstructive bowel gas pattern
[2024-08-16 10:19] LABS: Collection Type, Urine Clean Catch; Squamous Epithelial Cell,Urine 0 /hpf (0-5)
[2024-08-16 10:25] LABS: Bilirubin,Urine Negative (Negative); Blood,Urine Trace (Negative); Clarity,Urine Clear (Clear/Hazy); Color,Urine Colorless (Lt Yel-Yel); Culture Indicated,Urine Not Indicated; Glucose, Urine Negative (Negative); Ketones,Urine 1+ (Negative); Leukocyte Esterase,Urine Negative (Negative); Nitrite,Urine Negative (Negative); PH,Urine 7.5 (5.0-7.0); Protein,Urine Negative (Neg - Trace); RBC,Urine 3 /hpf (0-3); Specific Gravity,Urine 1.009 (1.001-1.035); Urobilinogen,Urine Negative mg/dL (0.0-1.0); WBC,Urine < 1 /hpf (0-5)
[2024-08-16 10:47] LABS: Basophils # (Auto) 0.1 Thou/mm3 (0.0-0.2); Basophils % (Auto) 2 % (0-2.5); Eosinophils # (Auto) 0.1 Thou/mm3 (0.0-0.5); Eosinophils % (Auto) 2 % (0-10); Hematocrit 39.3 % (36.0-46.0); Hemoglobin 13.3 g/dL (12.0-16.0); Immature Granulocytes % (Auto) 0 % (0-0); Lymphocytes # (Auto) 1.7 Thou/mm3 (1.0-4.8); Lymphocytes % (Auto) 33 % (10-50); Mean Corpuscular HGB Conc 33.8 g/dl (31.0-37.0); Mean Corpuscular Hemoglobin 30.2 pg (25.0-35.0); Mean Corpuscular Volume 89 fL (80-100); Monocytes # (Auto) 0.4 Thou/mm3 (0.0-0.8); Monocytes % (Auto) 8 % (0-12); Neutrophils # (Auto) 2.9 Thou/mm3 (1.8-7.7); Neutrophils % (Auto) 56 % (37-80); Nucleated Red Blood Cell % 0 /100 WBC (0); Platelet Count 191 Thou/mm3 (140-440); RDW Standard Deviation 41.7 fL (36.4-46.3); Red Blood Count 4.41 Miln/mm3 (4.00-5.20); White Blood Count 5.2 Thou/mm3 (3.6-11.0)
[2024-08-16 11:16] LABS: Alanine Aminotransferase 9 U/L (10-49); Albumin, Serum 4.6 gm/dL (3.4-4.8); Albumin/Globulin Ratio 1.8 (1.2-2.2); Alkaline Phosphatase 50 U/L (46-116); Anion Gap 7 (7-16); Aspartate Amino Transferase 23 U/L (0-34); BUN/Creatinine Ratio 16 Ratio (12-20); Bilirubin,Total 0.8 mg/dL (0.3-1.2); Blood Urea Nitrogen 13 mg/dL (9-23); Calcium 9.5 mg/dL (8.3-10.6); Calcium (Corrected) 9.5 mg/dL (8.5-10.1); Carbon Dioxide 28.9 mMol/L (20.0-31.0); Chloride 106 mMol/L (98-107); Creatinine (Component) 0.8 mg/dL (0.6-1.3); Estimated Creatinine Clearance 50.4 mL/min (>60); Free T4 (Free Thyroxine) 1.69 ng/dL (0.89-1.76); Globulin 2.5 gm/dL (2.3-3.5); Glucose 95 mg/dL (74-106); Lipase 36 U/L (12-53); Magnesium 2.2 mg/dL (1.6-2.6); Osmolality,Calculated 283 (275-295); Potassium 3.4 mMol/L (3.4-5.1); Sodium 142 mMol/L (136-145); Thyroid Stimulating Hormone 0.31 uIU/mL (0.55-4.78); Total Protein 7.1 gm/dL (5.7-8.2); Troponin I < 0.020 ng/mL (0.0-0.045); eGFR > 60 See Note
[2024-08-16 11:51] VITALS: BP 133/84; PULSE 73; RESP 17; TEMP 36.7; O2SAT 98
== END 2024-08-16 13:07 | disposition home or self-care (01) ==
PROVIDERS: Emergency Provider Emergency Medicine; PCP Family Medicine
DX: R10.9 Unspecified abdominal pain (principal); C95.90 Leukemia, unspecified not having achieved remission; I10 Essential (primary) hypertension; E03.9 Hypothyroidism, unspecified; E78.00 Pure hypercholesterolemia, unspecified; I25.2 Old myocardial infarction; Z88.5 Allergy status to narcotic agent
CPT/HCPCS: 36415; 74022; 80053; 81001; 83690; 83735; 84439; 84443; 84484; 85025; 99283

== ENCOUNTER 2024-08-24 14:32 | Outpatient (RCR) | payer OTHER, MEDICARE, SELFPAY ==
--- NOTE | 2024-08-15 23:24 | CTCFLWUP_ITS ---
Patient: ROSA LOVETT : 1960 Page 5 of 7 FOLLOW UP NOTE DATE OF SERVICE: 08/15/2024 NAME: ROSA LOVETT ACCOUNT: [id number] : 1960 AGE: 64 INTERVAL HISTORY: Patient is complaining of palpitations anxiety since starting her new levothyroxine dose. Patient have done the labs yesterday. 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 Unable to tolerate Sprycel 100 mg p.o. daily which was causing cardiac problems. Currently on Sprycel 20 mg p.o. daily Off of fentanyl. History of hepatitis C infection in the past. History of multiple large bowel surgeries in the past. REASON FOR TODAY?S VISIT: This is office follow-up visit. Ms. Lovett is here at [facility] Center. Since last visit she had CT scan of the abdomen and pelvis with and without contrast which showed slightly enlarged bile duct. She is currently on Sprycel 20 mg p.o. daily. Tolerating it very well. Recent labs showed her BCR/ABL transcript level is 0.007. DATE OF DIAGNOSIS: 04/08/2018 STAGE/TNM: TREATMENT HISTORY: Care?Plan Start?Date Cycle Day Intent HISTORY OF PRESENT ILLNESS: Rosa Lovett is a 64-year-old female with low back pain as well as bowel perforation 4 years ago secondary to chronic constipation had a CBC drawn on 10/22/2017 which showed WBC count to be 15.0 with 11% basophils. CBC drawn on 02/08/2018 showed the WBC count to be 28.2. Repeat CBC done on 04/08/2018 showed the WBC count to be 29.1. He had a CBC drawn on 05/08/2018 which again showed a WBC count to be elevated at 53.1. Reversal starch mangle tender real-time PCR showed 47.142% BCR?ABL 1/ABL 1. A repeat CBC was done the following day on 05/09/2018 which showed her WBC count to be 57.8. BCR?ABL 1/ABL 1% IS was 57.992. Bcr/abl1 Mjor (p210) detected. 05/23/2018: I have written a prescription for Gleevec 400 mg p.o. daily. 06/14/2018: Patient had bone marrow biopsy and aspiration done. Bone marrow biopsy showed background hypercellular bone marrow with trilineage hematopoiesis and profound granulocytic hyperplasia. Karyotyping showed 46, XX, t(9;22)translocation. BCR/abl1 IS% 05/08/2018: BCR/ABL transcript level 47.142 05/09/2018: BCR/ABL transcript level 57.992 06/29/2018: Patient was started on Gleevec 400 mg p.o. daily. 07/18/2018: BCR/ABL transcript level 29.327 08/17/2018: BCR/ABL transcript level 22.64 08/23/2018: Gleevec held due to significant diarrhea. 09/26/2018: BCR/ABL transcript level 43.774 10/24/2018: BCR/ABL transcript level 50.076 10/26/2018: Patient started taking Gleevec 300 mg p.o. daily. 12/07/2018: BCR/ABL transcript level 21.325% 12/09/2018: Gleevec held because of neutropenia. 12/15/2018: Patient is planning on having dental work done next week. 01/02/2019: Gleevec 300 mg alternating with 200 mg every other day recommended. However patient was taking only 200 mg alternating with 100 mg daily. 01/23/2019: BCR/ABL transcript level 34.475. Patient has increased the Gleevec to 250 mg p.o. daily. 03/01/2019: BCR/ABL transcript level 15.28. Gleevec increased to 350 mg alternating with 250 mg every other day. 04/12/2019: BCR/ABL transcript level 8.139. 04/19/2019: Gleevec is decreased to 250 mg p.o. daily due to persistent diarrhea nausea and vomiting along with weight loss. 06/13/2019: BCR/ABL is 2.321%. 08/21/2019: BCR/ABL transcript level 2.459%. 10/31/2019: BCR/ABL transcript level 0.336%. 12/28/2019: BCR/ABL transcript level 0.335% 03/04/2020: BCR/ABL transcript level 1.158%. 04/16/2020: BCR/ABL transcript level 1.392%. 05/15/2020: Sprycel 100 mg p.o. Daily started. 06/25/2020: BCR/ABL transcript level 0.279%. 09/04/2020: EKG? 09/05/2020: Chest x-ray? 09/05/2020: Sprycel 100 mg p.o. daily discontinued. 09/10/2020: BCR/ABL transcript level 0.000. 09/23/2020: BCR/ABL transcript level 0.043. 09/23/2020: Chest x-ray PA and lateral views?no pneumonia or pulmonary edema. 09/30/2020: Sprycel 70 mg p.o. daily prescribed. 10/23/2020: BCR/ABL transcript level 0.283. 10/24/2020: Patient started taking Sprycel 70 mg p.o. daily even though it was prescribed on 09/30/2020. 12/02/2020: EKG? 12/02/2020: Chest x-ray? 12/27/2020: BCR/ABL transcript level 0.108. 03/03/2021: BCR/ABL transcript level 0.024. 05/05/2021: BCR/ABL transcript level 0.015. 08/08/2021: WBC 3.9, ANC 1.1, hemoglobin 12.2, platelets 175,000. 12/22/2021: BCR/ABL transcript level 0.006%. ANC 1.2. 08/11/2021: Sprycel decreased to 50 mg p.o. daily due to side effects. 12/29/2021: Sprycel decreased to 20 mg p.o. daily due to neutropenia. 08/24/2022: BCR/ABL transcript levels 0%. 11/16/2022: BCR/ABL transcript level 0.004%. 02/22/2023: BCR/ABL transcript level 0.006%. 06/01/2023: BCR/ABL transcript level 0.006%. 10/21/2023: BCR/ABL transcript level 0.010 11/30/2023: BCR/ABL transcript level 0.007%. 12/01/2023: CT scan of the abdomen and pelvis with and without contrast OTHER MEDICAL HISTORY/CONDITIONS: FAMILY HISTORY: SOCIAL HISTORY: MANAGER LINE HISTORY: MEDICATIONS: 1. docusate sodium - 100 mg tab As needed 2. levothyroxine - 37.5 mcg 1 Capsule Daily 3. Lyrica - 75 mg 1 Capsule Twice a Day 4. mirtazapine - 15 mg 1 tab Every day before sleep 5. ondansetron - 8 mg 1 tab Daily 6. rosuvastatin - 40 mg 1 tab Every day before sleep 7. Sprycel - 20 mg 1 tab Daily Medications Last Reconciled by Dena Lyle MD on 08/15/2024 ALLERGIES: codeine sulfate REVIEW OF SYSTEMS: A complete 14-point review of systems was performed and is negative except as noted in interval history. PHYSICAL EXAMINATION: VITAL SIGNS: Temperature?98.4, B/P?115/75, Oxygen?Saturation?97% Weight?122.2?lbs PAIN: 3 - Between mild and moderate pain ECOG Performance Status: 2 - Symptomatic; ambulatory; capable of self-care; >50% of waking hrs. not in bed GENERAL APPEARANCE: Appears well, in no apparent distress, appropriately interactive. HEENT: Normocephalic, no temporal wasting, normal conjunctiva, no scleral icterus, normal hearing, lips without lesions, neck normal range of motion. CARDIOVASCULAR: Not assessed. PULMONARY: Normal respiratory effort, no respiratory distress or use of accessory muscles, speaking in full sentences, no tachypnea. EXTREMITIES: No pedal edema or cyanosis. SKIN: Normal skin appearance. NEUROLOGIC: Alert and oriented x4. PSHYCHIATRIC: Appropriate affect, mood normal, behavior normal, intact thought and speech. LABORATORY DATA: I have personally reviewed and interpreted each of the patient?s relevant lab tests, abnormal findings are below: Date 08/01/24 08/14/24 ??WHITE?BLOOD?COUNT?(Thou/mm3) 7.6 5.2 ??RED?BLOOD?COUNT?(Miln/mm3) 4.63 4.47 ??HEMOGLOBIN?(gm/dl) 14.0 13.3 ??HEMATOCRIT?(%) 39.4 39.8 ??PLATELET?COUNT?(Thou/mm3) 207 216 ??NEUTROPHILS?%,?AUTO?(%) 71 49 ??LYMPH?%,?AUTO?(%) 18 37 ??NEUTROPHILS,?AUTO?(Thou/mm3) 5.4 2.6 ??GLUCOSE,RANDOM?(mg/dL) 103 84 ??BLOOD?UREA?NITROGEN?(mg/dL) 11 22 ??CREATININE?(mg/dL) 0.70 0.80 ??SODIUM?(mmol/L) 137 143 ??POTASSIUM?(mmol/L) 3.2?L 5.0 ??CHLORIDE?(mmol/L) 99 107 ??CrCl?(CandG)?(ml/min) 61.16 53.52 ??AST/SGOT?(Unit/L) 25 22 ??ALT/SGPT?(Unit/L) 9?L 11 ??ALKALINE?PHOSPHATASE?(Unit/L) 51 52 ??BILIRUBIN,?TOTAL?(mg/dL) 0.6 0.6 ??PROTEIN?TOTAL?(gm/dl) 8.1 6.9 ??ALBUMIN,?SERUM?(gm/dl) 5.1?H 4.5 ??GLOBULIN?(gm/dl) 3.0 2.4 ??ALBUMIN/GLOBULIN?RATIO 1.7 1.9 ??CALCIUM,?SERUM?(mg/dL) 10.5 9.7 ??CALCIUM?SERUM?(CORRECTED)?(mg/dL) 10.5?H 9.7 ASSESSMENT/PLAN: Chronic myeloid leukemia with BCR able less than 0.007 BCR/ABL transcript has been stable . Chari is on Sprycel 20 mg p.o. daily. She is tolerating it very well. Patient developed mild early heart failure with Sprycel 100 mg p.o. daily. Chronic phase chronic myelocytic leukemia. History of hepatitis C infection in the past. She was positive for hepatitis C antibodies. History of fibromyalgia Patient is having palpitations Hold Sprycel 20 mg p.o. daily. Will repeat labs and give her fluids Stop levothyroxine as her TSH is less than 1 Will start at lower dose Repeat echo ORDERS: Order # Description [id number] Comprehensive Metabolic Panel - 12 + CBC with Auto Diff [id number] Thyroid Stimulating Hormone + Assay Triiodothyronine (T3) [id number] + Follow Up 3 Months [id number] MRI + With W/O Contrast RETURN TO CLINIC: BILLING AND COMPLIANCE: I reviewed external records from providers outside my specialty as summarized above. I spent a total of 50 minutes on this patient?s care on the day of their visit excluding time spent related to any billed procedures. This time includes time spent with the patient as well as time spent documenting in the medical record, reviewing patients records and tests, obtaining history, placing orders, communicating with other healthcare professionals, counseling the patient, family or caregiver, and/or care coordination for the diagnoses above. Electronically Signed by: Ken Tena MD T: 11:21 PM CC: PCP: Jose L Chavez Referring: Jose L Chavez This document was completed utilizing speech recognition software. Grammatical errors, random word insertions, pronoun errors, and incomplete sentences are an occasional consequence of this system due to software limitations, ambient noise, and hardware issues. Any formal questions or concerns about the content, text or information contained within the body of this dictation should be directly addressed to the provider for clarification.
== END 2024-09-06 23:59 | disposition home or self-care (01) ==
LOC: SCTC 14:32
PROVIDERS: PCP Family Medicine; Referring Provider Family Medicine; Visit Provider Internal Medicine Hematology & Oncology
DX: C92.10 Chronic myeloid leukemia, BCR/ABL-positive, not having achieved remission (principal); I50.9 Heart failure, unspecified; M79.7 Fibromyalgia; Z86.19 Personal history of other infectious and parasitic diseases; R00.2 Palpitations
CPT/HCPCS: 96360; J7030; Q3014

== ENCOUNTER → 2024-08-30 | Outpatient (CLI) | payer OTHER, MEDICARE, SELFPAY ==
--- NOTE | 2024-08-30 14:30 | ECHO_ITS ---
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 16 - 28 cm?/m? DOPPLER AV Peak Velocity 129.0 cm/s AV Peak Gradient 6.7 mmHg AV Mean Gradient 5.0 mmHg AV Velocity Time Integral 30.6 cm LVOT Peak Velocity 78.3 cm/s LVOT Peak Gradient 2.5 mmHg LVOT Velocity Time Integral 27.9 cm AV Area Cont Eq vti 1.4 cm? AV Area Cont Eq pk 0.9 cm? MV Area PHT 3.1 cm? MR Peak Velocity 580.0 cm/s MR Peak Gradient 134.6 mmHg Mitral E Point Velocity 72.8 cm/s Mitral A Point Velocity 76.3 cm/s Mitral E to A Ratio 1.0 LV E' Lateral Velocity 7.7 cm/s Mitral E to LV E' Lateral Ratio 9.4 LV E' Septal Velocity 5.5 cm/s Mitral E to LV E' Septal Ratio 13.3 TR Peak Velocity 233.3 cm/s TR Peak Gradient 21.8 mmHg PV Peak Velocity 86.1 cm/s PV Peak Gradient 3.0 mmHg RVOT Peak Velocity 49.5 cm/s FINDINGS Left Ventricle Normal left ventricular size, wall thickness, systolic function with no obvious regional wall motion abnormalities. There is grade I diastolic dysfunction of the left ventricle (impaired relaxation pattern). The left ventricular ejection fraction is normal, estimated at 55-60%. Right Ventricle The right ventricle is normal in size and systolic function. The estimated right ventricular systolic pressure, 22 mmHg. Left Atrium The left atrium is normal by two-dimensional, color flow and Doppler imaging with no structural abnormalities, no thrombus formation present. Right Atrium The right atrium is normal by two-dimensional imaging, color flow and Doppler imaging with no structural abnormalities, no thrombus formation present. Atrial Septum The interatrial septum appears normal with no evidence of a shunt. Aorta The aorta is normal by two-dimensional, color flow and Doppler interrogation. Mitral Valve Mild mitral regurgitation. Mild mitral annular calcification. Aortic Valve Aortic valve sclerosis. Tricuspid Valve There is mild tricuspid valve regurgitation. Pulmonic Valve The pulmonic valve is not well visualized. There is no significant pulmonic valve regurgitation. Vessels The pulmonary artery appears normal. The inferior vena cava pulmonary and hepatic veins appear normal. Pericardium The pericardium is normal by two-dimensional imaging. There is no significant pericardial effusion. CONCLUSIONS Indication: Malignancy-elevated blood cell count Normal LV size and function with an ejection fraction of 55 to 60%. Normal RV size and function with normal RVSP. Mild MR and TR. Go Carvajal (Electronically Signed) Final Date: 31 August 2024 06:43
== END | disposition home or self-care (01) ==
LOC: SDIM 12:38
PROVIDERS: Referring Provider Internal Medicine Hematology & Oncology; Visit Provider Internal Medicine Hematology & Oncology
DX: I08.1 Rheumatic disorders of both mitral and tricuspid valves (principal); C92.10 Chronic myeloid leukemia, BCR/ABL-positive, not having achieved remission; C92.11 Chronic myeloid leukemia, BCR/ABL-positive, in remission
CPT/HCPCS: 93306

== ENCOUNTER → 2024-09-12 | Outpatient (CLI) | payer OTHER, MEDICARE, SELFPAY ==
[2024-09-12 13:17] LABS: Basophils # (Auto) 0.1 Thou/mm3 (0.0-0.2); Basophils % (Auto) 3 % (0-2.5); Eosinophils # (Auto) 0.3 Thou/mm3 (0.0-0.5); Eosinophils % (Auto) 5 % (0-10); Hematocrit 39.3 % (36.0-46.0); Hemoglobin 13.7 g/dL (12.0-16.0); Immature Granulocytes % (Auto) 0 % (0-0); Immature Granulocytes Auto 0.01 Thou/mm3 (0.00-0.00); Lymphocytes # (Auto) 2.5 Thou/mm3 (1.0-4.8); Lymphocytes % (Auto) 48 % (10-50); Mean Corpuscular HGB Conc 34.9 g/dl (31.0-37.0); Mean Corpuscular Volume 86 fL (80-100); Monocytes # (Auto) 0.5 Thou/mm3 (0.0-0.8); Monocytes % (Auto) 9 % (0-12); Neutrophils # (Auto) 1.9 Thou/mm3 (1.8-7.7); Neutrophils % (Auto) 36 % (37-80); Nucleated Red Blood Cell % 0 /100 WBC (0); Platelet Count 194 Thou/mm3 (140-440); RDW Standard Deviation 40.8 fL (36.4-46.3); Red Blood Count 4.56 Miln/mm3 (4.00-5.20); White Blood Count 5.2 Thou/mm3 (3.6-11.0)
[2024-09-12 13:28] LABS: Alanine Aminotransferase 11 U/L (10-49); Albumin, Serum 4.7 gm/dL (3.4-4.8); Albumin/Globulin Ratio 1.9 (1.2-2.2); Alkaline Phosphatase 51 U/L (46-116); Anion Gap 5 (7-16); Aspartate Amino Transferase 23 U/L (0-34); BUN/Creatinine Ratio 11 Ratio (12-20); Bilirubin,Total 0.6 mg/dL (0.3-1.2); Blood Urea Nitrogen 9 mg/dL (9-23); Calcium 9.6 mg/dL (8.3-10.6); Calcium (Corrected) 9.6 mg/dL (8.5-10.1); Carbon Dioxide 30.5 mMol/L (20.0-31.0); Chloride 101 mMol/L (98-107); Creatinine (Component) 0.8 mg/dL (0.6-1.3); Free T4 (Free Thyroxine) 0.98 ng/dL (0.89-1.76); Globulin 2.5 gm/dL (2.3-3.5); Glucose 84 mg/dL (74-106); Osmolality,Calculated 269 (275-295); Potassium 3.8 mMol/L (3.4-5.1); Sodium 136 mMol/L (136-145); Thyroid Stimulating Hormone 21.38 uIU/mL (0.55-4.78); Total Protein 7.2 gm/dL (5.7-8.2); eGFR > 60 See Note
[2024-09-12 15:54] LABS: Glucose Estimated Average 103 mg/dL (80-131); Hemoglobin A1C 5.2 % Hgb (4.8-6.0)
[2024-09-12 16:16] LABS: Cardiac Risk Estimate 2.8 RATIO (3.7-5.6); Cholesterol 192 mg/dL (132-200); HDL Cholesterol 69 mg/dL (40-60); LDL Cholesterol,Calculated 92 mg/dL (0-130); Triglycerides 155 mg/dL (30-150)
== END | disposition home or self-care (01) ==
LOC: COPL 12:42
PROVIDERS: PCP Family Medicine; Referring Provider Family Medicine; Visit Provider Family Medicine
DX: E03.9 Hypothyroidism, unspecified (principal); E78.2 Mixed hyperlipidemia; I10 Essential (primary) hypertension; R73.01 Impaired fasting glucose
CPT/HCPCS: 36415; 80053; 80061; 83036; 84439; 84443; 85025

== ENCOUNTER → 2024-09-19 | Outpatient (CLI) | payer OTHER, MEDICARE, SELFPAY ==
[2024-09-19 13:51] LABS: Free T4 (Free Thyroxine) 0.99 ng/dL (0.89-1.76); Thyroid Stimulating Hormone 13.61 uIU/mL (0.55-4.78)
[2024-09-26 06:16] LABS: T3,Total* 93 ng/dL (76-181)
== END | disposition home or self-care (01) ==
LOC: COPL 12:50
PROVIDERS: PCP Family Medicine; Referring Provider Nurse Practitioner Family; Visit Provider Nurse Practitioner Family
DX: E03.9 Hypothyroidism, unspecified (principal)
CPT/HCPCS: 36415; 84439; 84443; 84480

== ENCOUNTER → 2024-09-28 | Outpatient (CLI) | payer OTHER, MEDICARE, SELFPAY ==
--- NOTE | 2024-09-28 14:30 | XR_ITS ---
Examination: Screening digital mammography, bilateral Computer aided detection 3-D breast Tomosynthesis, bilateral Date and time of exam: September 28, 2024 1415 hours Compared to mammograms dating to June 27, 2015 Indication: Screening Technique: Nonmagnified MLO, CC views of the breasts to been obtained, reconstructed from 3-D Tomosynthesis images. R2 computer aided detection program utilized for evaluation of suspicious masses and/or abnormal calcifications. 3-D Tomosynthesis images obtained. Findings: Scattered areas of fibroglandular density. Benign calcifications. 6 mm focal asymmetry slightly outer right breast on the CC view posterior depth, 6.8 cm from the nipple IMPRESSION: BI-RADS Category 0: Incomplete: Need additional imaging evaluation Recommend follow-up spot tomographic views upper outer quadrant right breast posterior depth to assess focal asymmetry right breast noted on the CC view today
== END | disposition home or self-care (01) ==
LOC: CDIM 14:07
PROVIDERS: Referring Provider Physician Assistant Medical; Visit Provider Physician Assistant Medical
DX: Z12.31 Encounter for screening mammogram for malignant neoplasm of breast (principal); N64.89 Other specified disorders of breast
CPT/HCPCS: 77063; 77067

== ENCOUNTER → 2024-10-11 | Outpatient (CLI) | payer OTHER, MEDICARE, SELFPAY ==
--- NOTE | 2024-10-11 10:49 | XR_ITS ---
Examination: Diagnostic digital mammography, unilateral, right Computer aided detection 3-D breast Tomosynthesis, unilateral Date and time of exam: October 11, 2024 1106 hours INDICATIONS: Mammogram September 28, 2024 6 mm focal asymmetry outer right breast posterior depth Technique: Nonmagnified MLO, CC views of the right breast have been obtained, reconstructed from 3-D Tomosynthesis images. R2 computer aided detection program utilized for evaluation of suspicious masses and/or abnormal calcifications. 3-D Tomosynthesis images obtained. Findings: Scattered areas of fibroglandular density Persistent focal asymmetry nipple level right breast CC view posterior depth Impression: BI-RADS category 3: Probably benign findings One additional 6 month right mammogram follow-up is needed to document stability of focal asymmetry described above
== END | disposition home or self-care (01) ==
LOC: CDIM 10:46
PROVIDERS: Referring Provider Specialist; Visit Provider Specialist
DX: R92.331 Mammographic heterogeneous density, right breast (principal); N64.89 Other specified disorders of breast
CPT/HCPCS: 77061; 77065; G0279

== ENCOUNTER → 2024-10-20 | Outpatient (CLI) | payer OTHER, MEDICARE, SELFPAY ==
[2024-10-20 12:31] LABS: Free T4 (Free Thyroxine) 1.32 ng/dL (0.89-1.76); Thyroid Stimulating Hormone 5.42 uIU/mL (0.55-4.78)
[2024-10-26 06:40] LABS: T3,Total* 92 ng/dL (76-181)
== END | disposition home or self-care (01) ==
LOC: COPL 11:24
PROVIDERS: Referring Provider Nurse Practitioner Family; Visit Provider Nurse Practitioner Family
DX: E03.9 Hypothyroidism, unspecified (principal)
CPT/HCPCS: 36415; 84439; 84443; 84480

== ENCOUNTER → 2024-11-06 | Outpatient (CLI) | payer OTHER, MEDICARE, SELFPAY ==
[2024-11-06 16:18] LABS: Misc Send Out* See Sep Rpt
[2024-11-06 17:36] LABS: Basophils # (Auto) 0.1 Thou/mm3 (0.0-0.2); Basophils % (Auto) 2 % (0-2.5); Eosinophils # (Auto) 0.3 Thou/mm3 (0.0-0.5); Eosinophils % (Auto) 5 % (0-10); Hematocrit 35.5 % (36.0-46.0); Hemoglobin 12.3 g/dL (12.0-16.0); Immature Granulocytes % (Auto) 0 % (0-0); Immature Granulocytes Auto 0.01 Thou/mm3 (0.00-0.00); Lymphocytes # (Auto) 2.5 Thou/mm3 (1.0-4.8); Lymphocytes % (Auto) 51 % (10-50); Mean Corpuscular HGB Conc 34.6 g/dl (31.0-37.0); Mean Corpuscular Hemoglobin 30.3 pg (25.0-35.0); Mean Corpuscular Volume 87 fL (80-100); Monocytes # (Auto) 0.5 Thou/mm3 (0.0-0.8); Monocytes % (Auto) 9 % (0-12); Neutrophils # (Auto) 1.5 Thou/mm3 (1.8-7.7); Neutrophils % (Auto) 32 % (37-80); Nucleated Red Blood Cell % 0 /100 WBC (0); Platelet Count 198 Thou/mm3 (140-440); RDW Standard Deviation 44.8 fL (36.4-46.3); Red Blood Count 4.06 Miln/mm3 (4.00-5.20); White Blood Count 4.8 Thou/mm3 (3.6-11.0)
[2024-11-06 17:54] LABS: Alanine Aminotransferase 10 U/L (10-49); Albumin, Serum 4.2 gm/dL (3.4-4.8); Albumin/Globulin Ratio 1.8 (1.2-2.2); Alkaline Phosphatase 45 U/L (46-116); Anion Gap 3 (7-16); Aspartate Amino Transferase 20 U/L (0-34); BUN/Creatinine Ratio 16 Ratio (12-20); Bilirubin,Total 0.4 mg/dL (0.3-1.2); Blood Urea Nitrogen 14 mg/dL (9-23); Calcium 9.2 mg/dL (8.3-10.6); Calcium (Corrected) 9.2 mg/dL (8.5-10.1); Carbon Dioxide 31.6 mMol/L (20.0-31.0); Chloride 107 mMol/L (98-107); Creatinine (Component) 0.9 mg/dL (0.6-1.3); Globulin 2.3 gm/dL (2.3-3.5); Glucose 93 mg/dL (74-106); Osmolality,Calculated 283 (275-295); Potassium 3.9 mMol/L (3.4-5.1); Sodium 142 mMol/L (136-145); Thyroid Stimulating Hormone 8.24 uIU/mL (0.55-4.78); Total Protein 6.5 gm/dL (5.7-8.2); eGFR > 60 See Note
== END | disposition home or self-care (01) ==
LOC: SCTO 15:58
PROVIDERS: PCP Family Medicine; Referring Provider Internal Medicine Hematology & Oncology; Visit Provider Internal Medicine Hematology & Oncology
DX: D72.829 Elevated white blood cell count, unspecified (principal)
CPT/HCPCS: 36415; 80053; 84443; 85025

== ENCOUNTER → 2024-11-07 | Outpatient (CLI) | payer OTHER, MEDICARE, SELFPAY ==
[2024-11-02 17:53] LABS: Basophils # (Auto) 0.1 Thou/mm3 (0.0-0.2); Basophils % (Auto) 2 % (0-2.5); Eosinophils # (Auto) 0.4 Thou/mm3 (0.0-0.5); Eosinophils % (Auto) 6 % (0-10); Hematocrit 42.8 % (36.0-46.0); Hemoglobin 14.6 g/dL (12.0-16.0); Immature Granulocytes Auto 0.01 Thou/mm3 (0.00-0.00); Lymphocytes # (Auto) 3.1 Thou/mm3 (1.0-4.8); Lymphocytes % (Auto) 48 % (10-50); Mean Corpuscular HGB Conc 34.1 g/dl (31.0-37.0); Mean Corpuscular Hemoglobin 30.0 pg (25.0-35.0); Mean Corpuscular Volume 88 fL (80-100); Monocytes # (Auto) 0.6 Thou/mm3 (0.0-0.8); Monocytes % (Auto) 9 % (0-12); Neutrophils # (Auto) 2.2 Thou/mm3 (1.8-7.7); Neutrophils % (Auto) 34 % (37-80); Nucleated Red Blood Cell # 0.00 Thou/mm3 (0.00-0.00); Nucleated Red Blood Cell % 0 /100 WBC (0); Platelet Count 257 Thou/mm3 (140-440); RDW Standard Deviation 45.1 fL (36.4-46.3); Red Blood Count 4.86 Miln/mm3 (4.00-5.20); White Blood Count 6.4 Thou/mm3 (3.6-11.0)
[2024-11-02 18:04] LABS: Alanine Aminotransferase 11 U/L (10-49); Albumin, Serum 4.9 gm/dL (3.4-4.8); Albumin/Globulin Ratio 1.9 (1.2-2.2); Alkaline Phosphatase 54 U/L (46-116); Anion Gap 6 (7-16); Aspartate Amino Transferase 25 U/L (0-34); BUN/Creatinine Ratio 10 Ratio (12-20); Bilirubin,Total 0.6 mg/dL (0.3-1.2); Blood Urea Nitrogen 10 mg/dL (9-23); Calcium 9.9 mg/dL (8.3-10.6); Calcium (Corrected) 9.9 mg/dL (8.5-10.1); Carbon Dioxide 32.0 mMol/L (20.0-31.0); Chloride 105 mMol/L (98-107); Creatinine (Component) 1.0 mg/dL (0.6-1.3); Globulin 2.6 gm/dL (2.3-3.5); Glucose 101 mg/dL (74-106); Osmolality,Calculated 283 (275-295); Potassium 3.9 mMol/L (3.4-5.1); Sodium 143 mMol/L (136-145); Total Protein 7.5 gm/dL (5.7-8.2); eGFR > 60 See Note
--- NOTE | 2024-11-07 13:42 | XR_ITS ---
Examination: CT brain head with intravenous contrast. 2-D sagittal reconstructions. 2-D coronal reconstructions. Date and time of exam:November 07, 2024 1421 hours Comparison April 16, 2009 INDICATIONS: Diagnosis elevated white blood cell count, unspecified, cochlear implant 14 years ago, leukemia diagnosis 10 years ago, headaches 3 weeks CTDI: vol (mGy): 45.6 DLP: (mGycm):899 Technique: Axial sections of the brain have been obtained. 5 mm slice thickness images have been obtained. Intravenous contrast material has not been administered. Low dose protocols were performed. One or more of the following dose reduction techniques were used; automated exposure control, adjustment of the mA and/or KV according to patient size, use of iterative reconstruction technique. Findings: There are 4 standard brain density images on this study The ventricles are not enlarged Cochlear implant artifacts Left mastoidectomy partially IMPRESSION: Nondiagnostic study, repeat
== END | disposition home or self-care (01) ==
LOC: CCTX 13:33
PROVIDERS: PCP Family Medicine; Referring Provider Internal Medicine Hematology & Oncology; Visit Provider Internal Medicine Hematology & Oncology
DX: D72.829 Elevated white blood cell count, unspecified (principal); C92.10 Chronic myeloid leukemia, BCR/ABL-positive, not having achieved remission; C92.11 Chronic myeloid leukemia, BCR/ABL-positive, in remission
CPT/HCPCS: 36415; 70460; 80053; 85025; A4649; Q9967

== ENCOUNTER → 2024-11-14 | Outpatient (CLI) | payer OTHER, MEDICARE, SELFPAY | END | disposition home or self-care (01) | LOC: SLDO 15:07 | PROVIDERS: PCP Family Medicine; Referring Provider Family Medicine; Visit Provider Family Medicine | DX: N30.00 Acute cystitis without hematuria (principal) | CPT/HCPCS: 81001; 87077; 87086; 87186 ==

== ENCOUNTER 2024-11-21 14:07 | Outpatient (RCR) | payer OTHER, MEDICARE, SELFPAY ==
--- NOTE | 2024-11-15 06:22 | CTCFLWUP_ITS ---
Patient: ROSA LOVETT : 1960 Page 7 of 8 FOLLOW UP NOTE DATE OF SERVICE: 11/14/2024 NAME: ROSA LOVETT ACCOUNT: [id number] : 1960 AGE: 64 INTERVAL HISTORY: Rosa Lovett, a female with chronic myeloid leukemia (CML) in remission, presented with palpitations, anxiety, and thyroid dysfunction. Her history includes hepatitis C and heart failure. Thyroid levels have fluctuated significantly (0.18-28), causing multiple symptoms despite levothyroxine adju stments. BCR-ABL testing shows complete remission of CML. Management includes continuing Sprycel (dasatinib) 20mg daily, endocrinology referral for thyroid management with ultrasound and function tests, psychiatry referral for anxiety, and headache monitoring following a CT scan showing no ventricular enlargement. 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 Unable to tolerate Sprycel 100 mg p.o. daily which was causing cardiac problems. Currently on Sprycel 20 mg p.o. daily Off of fentanyl. History of hepatitis C infection in the past. History of multiple large bowel surgeries in the past. REASON FOR TODAY?S VISIT: This is office follow-up visit. Ms. Lovett is here at [facility]. Since last visit she had CT scan of the abdomen and pelvis with and without contrast which showed slightly enlarged bile duct. She is currently on Sprycel 20 mg p.o. daily. Tolerating it very well. Recent labs showed her BCR/ABL transcript level is 0.007. DATE OF DIAGNOSIS: 04/08/2018 STAGE/TNM: TREATMENT HISTORY: Care?Plan Start?Date Cycle Day Intent HISTORY OF PRESENT ILLNESS: Rosa Lovett is a 64-year-old female with low back pain as well as bowel perforation 4 years ago secondary to chronic constipation had a CBC drawn on 10/22/2017 which showed WBC count to be 15.0 with 11% basophils. CBC drawn on 02/08/2018 showed the WBC count to be 28.2. Repeat CBC done on 04/08/2018 showed the WBC count to be 29.1. He had a CBC drawn on 05/08/2018 which again showed a WBC count to be elevated at 53.1. Reversal stock repairer real-time PCR showed 47.142% BCR?ABL 1/ABL 1. A repeat CBC was done the following day on 05/09/2018 which showed her WBC count to be 57.8. BCR?ABL 1/ABL 1% IS was 57.992. Bcr/abl1 Mjor (p210) detected. 05/23/2018: I have written a prescription for Gleevec 400 mg p.o. daily. 06/14/2018: Patient had bone marrow biopsy and aspiration done. Bone marrow biopsy showed background hypercellular bone marrow with trilineage hematopoiesis and profound granulocytic hyperplasia. Karyotyping showed 46, XX, t(9;22)translocation. BCR/abl1 IS% 05/08/2018: BCR/ABL transcript level 47.142 05/09/2018: BCR/ABL transcript level 57.992 06/29/2018: Patient was started on Gleevec 400 mg p.o. daily. 07/18/2018: BCR/ABL transcript level 29.327 08/17/2018: BCR/ABL transcript level 22.64 08/23/2018: Gleevec held due to significant diarrhea. 09/26/2018: BCR/ABL transcript level 43.774 10/24/2018: BCR/ABL transcript level 50.076 10/26/2018: Patient started taking Gleevec 300 mg p.o. daily. 12/07/2018: BCR/ABL transcript level 21.325% 12/09/2018: Gleevec held because of neutropenia. 12/15/2018: Patient is planning on having dental work done next week. 01/02/2019: Gleevec 300 mg alternating with 200 mg every other day recommended. However patient was taking only 200 mg alternating with 100 mg daily. 01/23/2019: BCR/ABL transcript level 34.475. Patient has increased the Gleevec to 250 mg p.o. daily. 03/01/2019: BCR/ABL transcript level 15.28. Gleevec increased to 350 mg alternating with 250 mg every other day. 04/12/2019: BCR/ABL transcript level 8.139. 04/19/2019: Gleevec is decreased to 250 mg p.o. daily due to persistent diarrhea nausea and vomiting along with weight loss. 06/13/2019: BCR/ABL is 2.321%. 08/21/2019: BCR/ABL transcript level 2.459%. 10/31/2019: BCR/ABL transcript level 0.336%. 12/28/2019: BCR/ABL transcript level 0.335% 03/04/2020: BCR/ABL transcript level 1.158%. 04/16/2020: BCR/ABL transcript level 1.392%. 05/15/2020: Sprycel 100 mg p.o. Daily started. 06/25/2020: BCR/ABL transcript level 0.279%. 09/04/2020: EKG? 09/05/2020: Chest x-ray? 09/05/2020: Sprycel 100 mg p.o. daily discontinued. 09/10/2020: BCR/ABL transcript level 0.000. 09/23/2020: BCR/ABL transcript level 0.043. 09/23/2020: Chest x-ray PA and lateral views?no pneumonia or pulmonary edema. 09/30/2020: Sprycel 70 mg p.o. daily prescribed. 10/23/2020: BCR/ABL transcript level 0.283. 10/24/2020: Patient started taking Sprycel 70 mg p.o. daily even though it was prescribed on 09/30/2020. 12/02/2020: EKG? 12/02/2020: Chest x-ray? 12/27/2020: BCR/ABL transcript level 0.108. 03/03/2021: BCR/ABL transcript level 0.024. 05/05/2021: BCR/ABL transcript level 0.015. 08/08/2021: WBC 3.9, ANC 1.1, hemoglobin 12.2, platelets 175,000. 12/22/2021: BCR/ABL transcript level 0.006%. ANC 1.2. 08/11/2021: Sprycel decreased to 50 mg p.o. daily due to side effects. 12/29/2021: Sprycel decreased to 20 mg p.o. daily due to neutropenia. 08/24/2022: BCR/ABL transcript levels 0%. 11/16/2022: BCR/ABL transcript level 0.004%. 02/22/2023: BCR/ABL transcript level 0.006%. 06/01/2023: BCR/ABL transcript level 0.006%. 10/21/2023: BCR/ABL transcript level 0.010 11/30/2023: BCR/ABL transcript level 0.007%. 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 docusate sodium - 100 mg tab As needed 2. levothyroxine - 37.5 mcg 1 Capsule Daily 3. Lyrica - 75 mg 1 Capsule Twice a Day 4. mirtazapine - 15 mg 1 tab Every day before sleep 5. ondansetron - 8 mg 1 tab Daily 6. rosuvastatin - 40 mg 1 tab Every day before sleep 7. Sprycel - 20 mg 1 tab Daily Medications Last Reconciled by Dena Gonzalez MA on 11/14/2024 ALLERGIES: codeine sulfate REVIEW OF SYSTEMS: A complete 14-point review of systems was performed and is negative except as noted in interval history. PHYSICAL EXAMINATION: VITAL SIGNS: Temperature?98, B/P?118/69, Oxygen?Saturation?95% Weight?117?lbs PAIN: 0 - No pain ECOG Performance Status: 2 - Symptomatic; ambulatory; capable of self-care; >50% of waking hrs. not in bed GENERAL APPEARANCE: Appears well, in no apparent distress, appropriately interactive. HEENT: Normocephalic, no temporal wasting, normal conjunctiva, no scleral icterus, normal hearing, lips without lesions, neck normal range of motion. CARDIOVASCULAR: Not assessed. PULMONARY: Normal respiratory effort, no respiratory distress or use of accessory muscles, speaking in full sentences, no tachypnea. EXTREMITIES: No pedal edema or cyanosis. SKIN: Normal skin appearance. NEUROLOGIC: Alert and oriented x4. PSHYCHIATRIC: patient cries throughout appointment .. very labile mood. Not suicidal or homicidal LABORATORY DATA: I have personally reviewed and interpreted each of the patient?s relevant lab tests, abnormal findings are below: Date 11/02/24 11/06/24 ??WHITE?BLOOD?COUNT?(Thou/mm3) 6.4 4.8 ??RED?BLOOD?COUNT?(Miln/mm3) 4.86 4.06 ??HEMOGLOBIN?(gm/dl) 14.6 12.3 ??HEMATOCRIT?(%) 42.8 35.5?L ??PLATELET?COUNT?(Thou/mm3) 257 198 ??NEUTROPHILS?%,?AUTO?(%) 34?L 32?L ??LYMPH?%,?AUTO?(%) 48 51?H ??NEUTROPHILS,?AUTO?(Thou/mm3) 2.2 1.5?L ??GLUCOSE,RANDOM?(mg/dL) 101 93 ??BLOOD?UREA?NITROGEN?(mg/dL) 10 14 ??CREATININE?(mg/dL) 1.00 0.90 ??SODIUM?(mmol/L) 143 142 ??POTASSIUM?(mmol/L) 3.9 3.9 ??CHLORIDE?(mmol/L) 105 107 ??CrCl?(CandG)?(ml/min) 48.92 54.35 ??AST/SGOT?(Unit/L) 25 20 ??ALT/SGPT?(Unit/L) 11 10 ??ALKALINE?PHOSPHATASE?(Unit/L) 54 45?L ??BILIRUBIN,?TOTAL?(mg/dL) 0.6 0.4 ??PROTEIN?TOTAL?(gm/dl) 7.5 6.5 ??ALBUMIN,?SERUM?(gm/dl) 4.9?H 4.2 ??GLOBULIN?(gm/dl) 2.6 2.3 ??ALBUMIN/GLOBULIN?RATIO 1.9 1.8 ??CALCIUM,?SERUM?(mg/dL) 9.9 9.2 ??CALCIUM?SERUM?(CORRECTED)?(mg/dL) 9.9 9.2 ASSESSMENT/PLAN: Chronic myeloid leukemia with BCR able less than 0.007 BCR/ABL transcript has been stable . [place] is on Sprycel 20 mg p.o. daily. She is tolerating it very well. Patient developed mild early heart failure with Sprycel 100 mg p.o. daily. Chronic phase chronic myelocytic leukemia. History of hepatitis C infection in the past. She was positive for hepatitis C antibodies. History of fibromyalgia Echo stable Rosa Lovett, female patient with history of chronic myeloid leukemia (CML) in remission, hepatitis C, and heart failure, presenting with palpitations, anxiety, and thyroid dysfunction. Thyroid Dysfunction Assessment: Patient reports significant thyroid level fluctuations (0.18, 28, 21, 13, 5) and associated symptoms including palpitations, anxiety, emotional distress, nausea, constipation, and memory issues. Recent levothyroxine dose adjustment resulted in an ER visit due to severe constipation. Current dose is taken at 5 AM with a 4-hour fasting period. Thyroid levels were reported to be in a safe range after the ER visit, but ongoing symptoms persist. The instability of thyroid levels and associated symptoms are causing significant distress and impacting quality of life. Plan: - Refer to plunger shovel operator for specialized thyroid management - Order thyroid function tests - Order thyroid ultrasound to evaluate for nodules or structural abnormalities - Continue current levothyroxine regimen pending plunger shovel operator evaluation - Educate patient on importance of consistent medication timing and fasting period Chronic Myeloid Leukemia (CML) Assessment: Patient's CML is currently in complete remission with BCR-ABL level reported as undetectable (previously <0.07). Patient is maintained on Sprycel (dasatinib) 20 mg daily with good tolerance. Patient expresses concern about potential CML recurrence due to current stress and thyroid issues, but there is no clinical evidence to support this concern at present. Plan: - Continue Sprycel (dasatinib) 20 mg PO daily - Reassure patient about current remission status - Continue routine monitoring of BCR-ABL levels Anxiety and Emotional Distress Assessment: Patient reports significant anxiety and emotional distress, likely exacerbated by thyroid dysfunction and concerns about health. Symptoms are impacting daily life and relationships. No current psychiatric or psychological support in place. 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 Plan: - Refer to psychiatrist for evaluation and potential medication management - Recommend psychologist for supportive therapy and stress management techniques - Educate on importance of self-care and stress reduction - Discuss potential impact of past substance use on current symptoms Headaches Assessment: Patient reports headaches. Recent CT scan performed, limited by cochlear implant, showed no ventricular enlargement. Left mastoidectomy noted. Full evaluation of headaches limited by incomplete imaging. Plan: - Review complete CT scan report when available - Consider further imaging if clinically indicated, taking into account cochlear implant limitations - Monitor headache symptoms and reassess at follow-up ORDERS: Order # Description RETURN TO CLINIC: I reviewed the diagnosis, prognosis, and recommended treatment/procedure options with the patient (and/or their legal novelties sales representative), including the potential benefits, risks, side effects and alternative therapies. We also discussed the option of no treatment and the possibility of clinical trial participation, if applicable. All questions were addressed, and they demonstrated understanding. They provided informed consent to proceed with the proposed plan of care. BILLING AND COMPLIANCE: I reviewed external records from providers outside my specialty as summarized above. I spent a total of 50 minutes on this patient?s care on the day of their visit excluding time spent related to any billed procedures. This time includes time spent with the patient as well as time spent documenting in the medical record, reviewing patients records and tests, obtaining history, placing orders, communicating with other healthcare professionals, counseling the patient, family or caregiver, and/or care coordination for the diagnoses above. Electronically Signed by: {Object.Sanct_ID*PnP.NameFL@M}, {Object.Sanct_ID*PnP.Suffix@U} D: {Object.Sanct_Date} T: {Object.Sanct_Time} CC: PCP: Jose L Chavez Referring: Jose L Chavez This document was completed utilizing speech recognition software. Grammatical errors, random word insertions, pronoun errors, and incomplete sentences are an occasional consequence of this system due to software limitations, ambient noise, and hardware issues. Any formal questions or concerns about the content, text or information contained within the body of this dictation should be directly addressed to the provider for clarification.
== END 2024-12-07 23:59 | disposition home or self-care (01) ==
LOC: SCTC 14:07
PROVIDERS: PCP Family Medicine; Referring Provider Family Medicine; Visit Provider Internal Medicine Hematology & Oncology
DX: C92.11 Chronic myeloid leukemia, BCR/ABL-positive, in remission (principal); I50.9 Heart failure, unspecified; Z86.19 Personal history of other infectious and parasitic diseases; M79.7 Fibromyalgia; F41.9 Anxiety disorder, unspecified; K59.00 Constipation, unspecified; R00.2 Palpitations; R11.0 Nausea; E07.89 Other specified disorders of thyroid; R51.9 Headache, unspecified
CPT/HCPCS: 96360; 99212; J7030; G0463

== ENCOUNTER 2024-11-27 11:15 | Day surgery (SDC) | payer OTHER, MEDICARE, SELFPAY ==
--- NOTE | 2024-11-24 15:45 | EKG_ITS ---
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: RAYMON : 1960 Requested By: Jose Cruz Still Order Number: [id number] Reading MD: Jose Cruz Still Measurements Intervals [place] Rate: 63 P: 51 IN: 165 QRS: -14 QRSD: 77 T: 46 QT: 397 QTc: 409 Interpretive Statements SINUS RHYTHM LOW QRS VOLTAGE IN PRECORDIAL LEADS [QRS DEFLECTION < 1.0 mV IN CHEST LEADS] POSSIBLE RIGHT VENTRICULAR CONDUCTION DELAY [RSR (QR) IN V1/V2] POSSIBLE ANTERIOR MYOCARDIAL INFARCTION , PROBABLY OLD [30 ms Q WAVE IN V3/V4, OR R < 0.2 mV IN V4] Compared to ECG 11/24/2021 17:32:27 Low QRS voltage now present Myocardial infarct finding now present /store/S0/[id number].pdf
[2024-11-24 17:54] LABS: INR 1.0 (0.9-1.3); Partial Thromboplastin Time 25.1 Seconds (22.0-36.0); Prothrombin Time 10.9 Seconds (9.0-12.2)
[2024-11-24 17:59] LABS: Alanine Aminotransferase 8 U/L (10-49); Albumin, Serum 4.6 gm/dL (3.4-4.8); Albumin/Globulin Ratio 1.9 (1.2-2.2); Alkaline Phosphatase 47 U/L (46-116); Anion Gap 9 (7-16); Aspartate Amino Transferase 21 U/L (0-34); BUN/Creatinine Ratio 13 Ratio (12-20); Bilirubin,Total 0.5 mg/dL (0.3-1.2); Blood Urea Nitrogen 12 mg/dL (9-23); Calcium 9.5 mg/dL (8.3-10.6); Calcium (Corrected) 9.5 mg/dL (8.5-10.1); Carbon Dioxide 32.1 mMol/L (20.0-31.0); Chloride 102 mMol/L (98-107); Creatinine (Component) 0.9 mg/dL (0.6-1.3); Globulin 2.4 gm/dL (2.3-3.5); Glucose 107 mg/dL (74-106); Osmolality,Calculated 284 (275-295); Potassium 4.1 mMol/L (3.4-5.1); Sodium 143 mMol/L (136-145); Total Protein 7.0 gm/dL (5.7-8.2); eGFR > 60 See Note
[2024-11-27 12:12] VITALS: BP 145/80; PULSE 74; RESP 22; TEMP 36.6; O2SAT 96; BMI 21.1
[2024-11-27 13:41] VITALS: BP 110/62; PULSE 72; RESP 20; O2SAT 96
[2024-11-27] MEDS: RINGERS LACTATED 1000 ML 1,000 ML 20 ML IV (13:41)
[2024-11-27] MEDS: LIDOCAINE JELLY 2% (Urojet) 10 ML TUBE TOP (13:41)
[2024-11-27 13:57] VITALS: BP 106/57; PULSE 63; RESP 18; TEMP 36.6; O2SAT 98
[2024-11-27 14:07] VITALS: BP 117/67; PULSE 74; RESP 16; O2SAT 98
[2024-11-27 14:17] VITALS: BP 125/69; PULSE 62; RESP 15; O2SAT 98
[2024-11-27 14:27] VITALS: BP 135/78; PULSE 67; RESP 20; TEMP 36.6; O2SAT 99
== END 2024-11-27 14:34 | disposition home or self-care (01) ==
PROVIDERS: PCP Family Medicine; Referring Provider Specialist; Visit Provider Specialist
PROC: 0DBE8ZX Excision of Large Intestine, Via Natural or Artificial Opening Endoscopic, Diagnostic (ICD-10-PCS; CPT 45380; principal; 2024-11-27 11:15)
DX: K64.9 Unspecified hemorrhoids (principal); K57.30 Diverticulosis of large intestine without perforation or abscess without bleeding; Z01.810 Encounter for preprocedural cardiovascular examination; E03.9 Hypothyroidism, unspecified; E78.5 Hyperlipidemia, unspecified
CPT/HCPCS: 45378; 36415; 80053; 81025; 85610; 85730; 93005; J7120

== ENCOUNTER 2024-12-03 23:56 | Emergency (ER) | payer OTHER, MEDICARE, SELFPAY ==
[2024-12-04] VITALS: BP 168/94; PULSE 77; RESP 19; TEMP 36.5; O2SAT 96; BMI 21.7
--- NOTE | 2024-12-04 01:12 | EKG_ITS ---
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
[2024-12-04 02:03] LABS: Basophils # (Auto) 0.1 Thou/mm3 (0.0-0.2); Basophils % (Auto) 1 % (0-2.5); Eosinophils # (Auto) 0.1 Thou/mm3 (0.0-0.5); Eosinophils % (Auto) 1 % (0-10); Hematocrit 39.5 % (36.0-46.0); Hemoglobin 13.9 g/dL (12.0-16.0); Immature Granulocytes Auto 0.01 Thou/mm3 (0.00-0.00); Lymphocytes # (Auto) 1.1 Thou/mm3 (1.0-4.8); Lymphocytes % (Auto) 22 % (10-50); Mean Corpuscular HGB Conc 35.2 g/dl (31.0-37.0); Mean Corpuscular Hemoglobin 30.9 pg (25.0-35.0); Mean Corpuscular Volume 88 fL (80-100); Monocytes # (Auto) 0.3 Thou/mm3 (0.0-0.8); Monocytes % (Auto) 6 % (0-12); Neutrophils # (Auto) 3.7 Thou/mm3 (1.8-7.7); Neutrophils % (Auto) 70 % (37-80); Nucleated Red Blood Cell # 0.00 Thou/mm3 (0.00-0.00); Nucleated Red Blood Cell % 0 /100 WBC (0); Platelet Count 215 Thou/mm3 (140-440); RDW Standard Deviation 43.4 fL (36.4-46.3); Red Blood Count 4.50 Miln/mm3 (4.00-5.20); White Blood Count 5.3 Thou/mm3 (3.6-11.0)
[2024-12-04 02:05] LABS: Collection Type, Urine Clean Catch
[2024-12-04 02:14] LABS: Amorphous Crystals,Urine Present (Absent); Bacteria,Urine Rare; Bilirubin,Urine Negative (Negative); Blood,Urine Trace (Negative); Clarity,Urine Clear (Clear/Hazy); Color,Urine Lt-Yellow (Lt Yel-Yel); Culture Indicated,Urine Not Indicated; Glucose, Urine Negative (Negative); Ketones,Urine Negative (Negative); Leukocyte Esterase,Urine Positive (Negative); Nitrite,Urine Negative (Negative); PH,Urine 7.5 (5.0-7.0); Protein,Urine Negative (Neg - Trace); RBC,Urine 5 /hpf (0-3); Specific Gravity,Urine 1.012 (1.001-1.035); Squamous Epithelial Cell,Urine 1 /hpf (0-5); Urobilinogen,Urine Negative mg/dL (0.0-1.0); WBC,Urine 4 /hpf (0-5)
[2024-12-04 02:32] LABS: Alanine Aminotransferase 9 U/L (10-49); Albumin, Serum 4.8 gm/dL (3.4-4.8); Albumin/Globulin Ratio 1.7 (1.2-2.2); Alkaline Phosphatase 55 U/L (46-116); Amylase 84 U/L (30-118); Anion Gap 9 (7-16); Aspartate Amino Transferase 22 U/L (0-34); BUN/Creatinine Ratio 10 Ratio (12-20); Bilirubin,Total 0.5 mg/dL (0.3-1.2); Blood Urea Nitrogen 8 mg/dL (9-23); Calcium 9.9 mg/dL (8.3-10.6); Calcium (Corrected) 9.9 mg/dL (8.5-10.1); Carbon Dioxide 30.3 mMol/L (20.0-31.0); Chloride 102 mMol/L (98-107); Creatinine (Component) 0.8 mg/dL (0.6-1.3); Estimated Creatinine Clearance 50.4 mL/min (>60); Globulin 2.8 gm/dL (2.3-3.5); Glucose 134 mg/dL (74-106); Lipase 37 U/L (12-53); Osmolality,Calculated 281 (275-295); Potassium 3.6 mMol/L (3.4-5.1); Sodium 141 mMol/L (136-145); Total Protein 7.6 gm/dL (5.7-8.2); eGFR > 60 See Note
[2024-12-04 03:16] VITALS: BP 147/86; PULSE 76; RESP 17; TEMP 36.7; O2SAT 99
--- NOTE | 2024-12-04 03:23 | PD.EDABDPN ---
ED Abdominal Pain RME/HPI General Chief Complaint: Abdominal Pain Stated complaint: ABD PAIN Arrival date/time: 12/03/24 23:56 RME / HPI RME / HPI narrative: DR. MORRISON MAIN ED EVALUATION: 64 y/o female with a 10 year Hx of Chronic Myeloid Leukemia presents to ED c/o burning pain in the abdomen down to her rectum x 3 days. Patient had a colonoscopy performed approximately 5 days ago with unremarkable results. Patient states she has not had a normal bowel movement or urinary output until arriving to ED [facility]. Denies history of colonoscopy. No other concerns or complaints expressed at this time. Related Data Home Medications ?Medication ?Instructions ?Recorded ?Confirmed docusate sodium 100 mg capsule 250 mg PO BID Stool softener #0 06/23/13 11/27/24 (Colace) caps dasatinib 20 mg tablet (Sprycel) 20 mg PO DAILY 06/04/23 11/27/24 dicyclomine 10 mg capsule 10 mg PO QDAY 11/27/24 11/27/24 hydrochlorothiazide 25 mg tablet 25 mg PO QDAY 11/27/24 11/27/24 hydroxyzine pamoate 50 mg capsule 50 mg PO QDAY 11/27/24 11/27/24 levothyroxine 50 mcg tablet 50 mcg PO QDAY 11/27/24 11/27/24 mirtazapine 7.5 mg tablet 7.5 mg PO Q12H 11/27/24 11/27/24 pregabalin 100 mg capsule 100 mg PO Q12H 11/27/24 11/27/24 Allergies Allergy/AdvReac Type Severity Reaction Status Date / Time codeine Allergy Severe Hives Verified 12/03/24 23:59 hydromorphone Allergy Severe REDDENED, Verified 12/03/24 23:59 TATIANNA Review of Systems Review of Systems Systems Reviewed: All systems reviewed, normal except as documented Past Medical History Past Medical History NEUROLOGIC: Positive Neurological Disorders, Migraine and Head Trauma CARDIAC: Positive Cardiac Disorders, Myocardial Infarction, Hypercholesterolemia, Deep Vein Thrombosis and Hypertension (IN THE PAST) GASTROINTESTINAL: Positive Gastrointestinal Disorders (SEVERE CONSTIPATION), Gastrointestinal Bleed, Diverticulitis, Diverticulosis, Obstructive Bowel, Hemorrhoids and Gastroesophageal Reflux Disease GENITOURINARY: Positive Genitourinary Disorders (FREQUENT UTI IN THE PAST) REPRODUCTIVE: Positive Previous Pregnancies MUSCULOSKELETAL: Positive Musculoskeletal Disorders, Arthritis, Degenerative Disk Disease and Fibromyalgia ENT: Positive Deafness (HAS COCHLEAR IMPLANT) and Head Trauma ENDOCRINE: Positive Endocrine Disorders and Hypothyroidism HEMATOLOGIC: Positive Blood Disorders, Anemia and Leukemia PSYCHO/SOCIAL: Positive Depression and Anxiety OTHER HISTORY: Positive Shingles, Blood Transfusions, Chicken Pox, Measles, Mumps and Cancer Family History FAMILY HISTORY: Positive Family Psychiatric Problems, Family Cardiac Disorders and Family Gastrointestinal Problems Surgical History SURGICAL: Positive Cardiac Surgery, Angiogram, Bowel Surgery (WITH COLOSTOMY AND LATER REVERSAL) and Section ED Exam Narrative Physical exam: Generally patient is alert somewhat anxious but no obvious distress heart is regular rate and rhythm lungs show auscultation equal bilaterally abdomen soft bowel sounds present nondistended and currently nontender. Skin is warm pale and dry neurologic exam no focal motor or sensory deficits cranial nerves II through XII grossly intact Course Quality Measures none Orders Category Date Time Status EKG (ED ONLY) *Do not use* NOW Care 12/04/24 01:13 Completed EKG (ED Only) Stat Exams 12/04/24 01:12 Draft Amylase Stat Lab 12/04/24 01:31 Completed CBC Stat Lab 12/04/24 01:31 Completed Comprehensive Metabolic Panel Stat Lab 12/04/24 01:31 Completed Lipase Stat Lab 12/04/24 01:31 Completed UA, C/S IF [Urinalysis, C/S if Indicated] Stat Lab 12/04/24 01:55 Completed Lidocaine 2% Viscous [Xylocaine 2% Viscous] Med 12/04/24 03:23 Discontinued 15 ml PO X1 ONE mg Hyd/Al Hyd/Nina Susp [Maalox Susp] Med 12/04/24 03:23 Discontinued 30 ml PO X1 ONE Vital Signs Vital signs: Vital Signs Temperature 97.7 F 12/04/24 00:00 Pulse Rate 77 12/04/24 00:00 Respiratory Rate 19 12/04/24 00:00 Blood Pressure 168/94 H 12/04/24 00:00 Pulse Oximetry (%) 96 12/04/24 00:00 Oxygen Delivery Method Room Air 12/04/24 00:00 Abdominal Pain MDM MDM Narrative MDM Narrative:: Scribe Attestation: Olivia Shah, am scribing for and in the presence of Dr. Morrison. Provider Notation: Although this document has been carefully reviewed, there may still be some phonetic and other typographical errors.? These errors are purely grammatical due to imperfections in the software program and should not be construed in any way to? compromise the substance of the patient's medical care during this visit. I interpreted all labs. Patient describes abdominal bloating and a lot of gas and a feeling of early satiety and feeling very full. She just underwent a colonoscopy with unknown findings 1 week ago. Patient has had COVID in the past. Patient needs to be considered to have small intestinal bacterial overgrowth. She is to discuss that with her GI physician. She is stable for discharge. Patient data External records reviewed:: [facility] previous records (Reviewed prior ED records from 08/16/24. Patient was seen for Abdominal pain.) Clinical information provided by:: patient Social determinants that could affect healthcare access:: none Patient has the following chronic illnesses:: Migraine, Hypercholesterolemia, Deep Vein Thrombosis, Hypertension, Gastrointestinal Bleed, Diverticulitis, Diverticulosis, Obstructive Bowel, Hemorrhoids, Gastroesophageal Reflux Disease, Arthritis, Degenerative Disk Disease, Fibromyalgia, Deafness (HAS COCHLEAR IMPLANT), Hypothyroidism, Anemia, Leukemia, Depression and Anxiety How is presenting disease/condition affected by chronic disease/condition?: exacerbated by Evaluation data The following diagnostics were reviewed and interpreted by me:: lab results and EKG tracing(s) Lab and/or radiology exams considered but not ordered:: None Interpretation Summary: Refer to MDM above. Medications / Prescriptions Medications or Prescriptions considered but not ordered:: None Medication administrations:: Medication Administration History Discontinued Medications Al Hydrox/Mg Hydrox/Simethicone (Mg Hyd/Al Hyd/Nina (Maalox Reg) Susp 30 Ml Udc) 30 ml PO X1 ONE Stop: 12/04/24 03:24 Last Admin: 12/04/24 03:35 Dose: 30 ml Documented By: [email or web address] Lidocaine HCl (Lidocaine Viscous 2% 15 Ml Udc) 15 ml PO X1 ONE Stop: 12/04/24 03:24 Last Admin: 12/04/24 03:35 Dose: 15 ml Documented By: [email or web address] See above if any. Consultations Consultation(s) initiated? (list below): No Diagnosis Differential diagnosis abdominal pain: abdominal pain, constipation, diverticulitis, gastroenteritis, small bowel obstruction and other (GERD, Diverticulosis, Gastritis, H. Pylori) Most likely diagnosis given after review of the tests above:: None Admission Indicated Admission indicated?: not indicated Explain why admission is indicated or not indicated:: Patient does not meet admission criteria. Admission Request Was there a request for admission?: No Disposition Plan Disposition Plan: Discharge Discharge Attestation Discharge Attestation: The patient and all family members were given an opportunity to ask questions and understood the discharge instructions. Discharge instructions specifically effects, indications for sooner follow up or return to the emergency department, and the expected course of current diagnosis. Patient condition: Stable Discharge Plan Plan Patient Disposition: HOME (Self Care) Prescriptions/Referrals Prescriptions/Med Rec: No Action docusate sodium [Colace] 100 MG capsule 250 mg PO BID Qty: 0 dasatinib [Sprycel] 20 mg tablet 20 mg PO DAILY levothyroxine 50 mcg tablet 50 mcg PO QDAY Patient Comments: TAKE 1 TABLET BY MOUTH DAILY IN THE MORNING ON AN EMPTY STOMACH hydrochlorothiazide 25 mg tablet 25 mg PO QDAY hydroxyzine pamoate 50 mg capsule 50 mg PO QDAY mirtazapine 7.5 mg tablet 7.5 mg PO Q12H pregabalin 100 mg capsule 100 mg PO Q12H dicyclomine 10 mg capsule 10 mg PO QDAY Referrals: No Primary/Family,Physician [Primary Care Provider] - In 1 week Problem List Clinical Impression: Abdominal pain Patient/Caregiver Discharge Instructions Additional Instructions: Continue current medications. Discussed with your GI physician about you possibly having small intestinal bacterial overgrowth (SIBO). Print Language: Surinamese Stand Alone Forms: [facility] Award Info., Patient Portal Info Letter
[2024-12-04] MEDS: MG HYD/AL HYD/SIME (Maalox Reg) SUSP 30 ML UDC PO (03:35)
[2024-12-04] MEDS: LIDOCAINE VISCOUS 2% 15 ML UDC PO (03:35)
== END 2024-12-04 04:10 | disposition home or self-care (01) ==
PROVIDERS: Emergency Provider Emergency Medicine
DX: R10.9 Unspecified abdominal pain (principal); E78.00 Pure hypercholesterolemia, unspecified; I10 Essential (primary) hypertension
CPT/HCPCS: 36415; 80053; 81001; 82150; 83690; 85025; 93005; 99283; J3490; A9270

== ENCOUNTER → 2024-12-11 | Outpatient (CLI) | payer OTHER, MEDICARE, SELFPAY ==
--- NOTE | 2024-12-11 15:00 | XR_ITS ---
Examination: Thyroid sonography TECHNIQUE: Grayscale sonographic images thyroid lobes Date and time: December 11, 2024 1538 hours INDICATIONS: History thyroid nodules FINDINGS: Right thyroid 4.3 cm Left thyroid 3.8 cm No cystic or solid nodules noted IMPRESSION: Negative examination
[2024-12-11 16:45] LABS: Free T4 (Free Thyroxine) 1.22 ng/dL (0.89-1.76); Thyroid Stimulating Hormone 10.11 uIU/mL (0.55-4.78)
[2024-12-15 06:30] LABS: T3,Total* 91 ng/dL (76-181)
== END | disposition home or self-care (01) ==
LOC: CDIM 15:24 → COPL 15:52
PROVIDERS: PCP Family Medicine; Referring Provider Nurse Practitioner Family; Visit Provider Radiology Diagnostic Radiology
DX: E03.9 Hypothyroidism, unspecified (principal); E04.1 Nontoxic single thyroid nodule
CPT/HCPCS: 36415; 76536; 84439; 84443; 84480

== ENCOUNTER → 2024-12-22 | Outpatient (CLI) | payer OTHER, MEDICARE, SELFPAY ==
[2024-12-22 17:03] LABS: Free T4 (Free Thyroxine) 1.22 ng/dL (0.89-1.76); Thyroid Stimulating Hormone 7.75 uIU/mL (0.55-4.78)
[2024-12-28 06:55] LABS: T3,Total* 92 ng/dL (76-181)
== END | disposition home or self-care (01) ==
PROVIDERS: Nurse Practitioner Family; PCP Family Medicine; Referring Provider Internal Medicine Hematology & Oncology; Visit Provider Internal Medicine Hematology & Oncology
DX: E03.9 Hypothyroidism, unspecified (principal)
CPT/HCPCS: 36415; 84439; 84443; 84480

== ENCOUNTER 2025-01-12 09:33 | Outpatient (RCR) | payer OTHER, MEDICARE, SELFPAY | END 2025-02-06 23:59 | disposition home or self-care (01) | LOC: SCTC 09:33 | PROVIDERS: PCP Family Medicine; Referring Provider Family Medicine; Visit Provider Internal Medicine Hematology & Oncology | DX: C92.11 Chronic myeloid leukemia, BCR/ABL-positive, in remission (principal) | CPT/HCPCS: 96360; 96372; J7030 ==

== ENCOUNTER → 2025-01-25 | Outpatient (CLI) | payer OTHER, MEDICARE, SELFPAY ==
[2025-01-25 14:13] LABS: Basophils # (Auto) 0.1 Thou/mm3 (0.0-0.2); Basophils % (Auto) 2 % (0-2.5); Eosinophils # (Auto) 0.2 Thou/mm3 (0.0-0.5); Eosinophils % (Auto) 4 % (0-10); Hematocrit 41.0 % (36.0-46.0); Hemoglobin 14.0 g/dL (12.0-16.0); Immature Granulocytes Auto 0.01 Thou/mm3 (0.00-0.00); Lymphocytes # (Auto) 2.8 Thou/mm3 (1.0-4.8); Lymphocytes % (Auto) 47 % (10-50); Mean Corpuscular HGB Conc 34.1 g/dl (31.0-37.0); Mean Corpuscular Hemoglobin 30.4 pg (25.0-35.0); Mean Corpuscular Volume 89 fL (80-100); Monocytes # (Auto) 0.5 Thou/mm3 (0.0-0.8); Monocytes % (Auto) 8 % (0-12); Neutrophils # (Auto) 2.3 Thou/mm3 (1.8-7.7); Neutrophils % (Auto) 39 % (37-80); Nucleated Red Blood Cell # 0.00 Thou/mm3 (0.00-0.00); Nucleated Red Blood Cell % 0 /100 WBC (0); Platelet Count 221 Thou/mm3 (140-440); RDW Standard Deviation 42.5 fL (36.4-46.3); Red Blood Count 4.60 Miln/mm3 (4.00-5.20); White Blood Count 6.0 Thou/mm3 (3.6-11.0)
[2025-01-25 14:37] LABS: Alanine Aminotransferase < 7 U/L (10-49); Albumin, Serum 4.7 gm/dL (3.4-4.8); Albumin/Globulin Ratio 1.9 (1.2-2.2); Alkaline Phosphatase 59 U/L (46-116); Anion Gap 6 (7-16); Aspartate Amino Transferase 22 U/L (0-34); BUN/Creatinine Ratio 9 Ratio (12-20); Bilirubin,Total 0.6 mg/dL (0.3-1.2); Blood Urea Nitrogen 7 mg/dL (9-23); Calcium 10.2 mg/dL (8.3-10.6); Calcium (Corrected) 10.2 mg/dL (8.5-10.1); Carbon Dioxide 30.2 mMol/L (20.0-31.0); Cardiac Risk Estimate 4.5 RATIO (3.7-5.6); Chloride 105 mMol/L (98-107); Cholesterol 285 mg/dL (132-200); Creatinine (Component) 0.8 mg/dL (0.6-1.3); Free T3 3.2 pg/mL (2.3-4.2); Free T4 (Free Thyroxine) 1.81 ng/dL (0.89-1.76); Globulin 2.5 gm/dL (2.3-3.5); Glucose 86 mg/dL (74-106); HDL Cholesterol 64 mg/dL (40-60); LDL Cholesterol,Calculated 193 mg/dL (0-130); Osmolality,Calculated 278 (275-295); Potassium 3.8 mMol/L (3.4-5.1); Sodium 141 mMol/L (136-145); Thyroid Stimulating Hormone 0.32 uIU/mL (0.55-4.78); Total Protein 7.2 gm/dL (5.7-8.2); Triglycerides 142 mg/dL (30-150); eGFR > 60 See Note
== END | disposition home or self-care (01) ==
LOC: COPL 12:59
PROVIDERS: PCP Family Medicine; Referring Provider Family Medicine; Visit Provider Family Medicine
DX: E78.2 Mixed hyperlipidemia (principal); I10 Essential (primary) hypertension; E03.9 Hypothyroidism, unspecified
CPT/HCPCS: 36415; 80053; 80061; 84439; 84443; 84481; 85025

== ENCOUNTER → 2025-01-30 | Outpatient (CLI) | payer OTHER, MEDICARE, SELFPAY ==
[2025-01-30 10:52] LABS: Misc Send Out* See Sep Rpt
[2025-01-30 11:34] LABS: Basophils # (Auto) 0.1 Thou/mm3 (0.0-0.2); Basophils % (Auto) 2 % (0-2.5); Eosinophils # (Auto) 0.3 Thou/mm3 (0.0-0.5); Eosinophils % (Auto) 5 % (0-10); Hematocrit 38.6 % (36.0-46.0); Hemoglobin 13.2 g/dL (12.0-16.0); Immature Granulocytes Auto 0.01 Thou/mm3 (0.00-0.00); Lymphocytes # (Auto) 2.6 Thou/mm3 (1.0-4.8); Lymphocytes % (Auto) 48 % (10-50); Mean Corpuscular HGB Conc 34.2 g/dl (31.0-37.0); Mean Corpuscular Hemoglobin 30.6 pg (25.0-35.0); Mean Corpuscular Volume 90 fL (80-100); Monocytes # (Auto) 0.6 Thou/mm3 (0.0-0.8); Monocytes % (Auto) 12 % (0-12); Neutrophils # (Auto) 1.7 Thou/mm3 (1.8-7.7); Neutrophils % (Auto) 32 % (37-80); Nucleated Red Blood Cell # 0.00 Thou/mm3 (0.00-0.00); Nucleated Red Blood Cell % 0 /100 WBC (0); Platelet Count 231 Thou/mm3 (140-440); RDW Standard Deviation 42.2 fL (36.4-46.3); Red Blood Count 4.31 Miln/mm3 (4.00-5.20); White Blood Count 5.4 Thou/mm3 (3.6-11.0)
[2025-01-30 12:02] LABS: Alanine Aminotransferase < 7 U/L (10-49); Albumin, Serum 4.6 gm/dL (3.4-4.8); Albumin/Globulin Ratio 2.0 (1.2-2.2); Alkaline Phosphatase 56 U/L (46-116); Anion Gap 5 (7-16); Aspartate Amino Transferase 19 U/L (0-34); BUN/Creatinine Ratio 10 Ratio (12-20); Bilirubin,Total 0.4 mg/dL (0.3-1.2); Blood Urea Nitrogen 7 mg/dL (9-23); Calcium 9.8 mg/dL (8.3-10.6); Calcium (Corrected) 9.8 mg/dL (8.5-10.1); Carbon Dioxide 31.1 mMol/L (20.0-31.0); Cardiac Risk Estimate 4.4 RATIO (3.7-5.6); Chloride 103 mMol/L (98-107); Cholesterol 253 mg/dL (132-200); Creatinine (Component) 0.7 mg/dL (0.6-1.3); Free T3 3.2 pg/mL (2.3-4.2); Free T4 (Free Thyroxine) 1.61 ng/dL (0.89-1.76); Globulin 2.3 gm/dL (2.3-3.5); Glucose 86 mg/dL (74-106); HDL Cholesterol 57 mg/dL (40-60); LDL Cholesterol,Calculated 154 mg/dL (0-130); Osmolality,Calculated 274 (275-295); Potassium 4.0 mMol/L (3.4-5.1); Sodium 139 mMol/L (136-145); Thyroid Stimulating Hormone 0.29 uIU/mL (0.55-4.78); Total Protein 6.9 gm/dL (5.7-8.2); Triglycerides 212 mg/dL (30-150); eGFR > 60 See Note
[2025-02-05 07:02] LABS: Thyroglobulin Antibodies 3 IU/mL (< OR = 1)
[2025-02-05 07:20] LABS: TSI, Thyroid Stimulating Ig* <89 % baseline (<140); Thyroglobulin 3.3 ng/mL; Thyroid Peroxidase Antibodies* 197 IU/mL (<9); Zinc, Plasma* 75 mcg/dL (60-130)
== END | disposition home or self-care (01) ==
LOC: COPL 10:17
PROVIDERS: PCP Family Medicine; Referring Provider Internal Medicine Endocrinology, Diabetes & Metabolism; Visit Provider Internal Medicine Endocrinology, Diabetes & Metabolism
DX: R79.89 Other specified abnormal findings of blood chemistry (principal); C92.20 Atypical chronic myeloid leukemia, BCR/ABL-negative, not having achieved remission
CPT/HCPCS: 36415; 80053; 80061; 84432; 84439; 84443; 84445; 84481; 84630; 85025; 86376; 86800

== ENCOUNTER → 2025-02-06 | Outpatient (CLI) | payer OTHER, MEDICARE, SELFPAY ==
[2025-02-06 12:57] LABS: Free T4 (Free Thyroxine) 1.64 ng/dL (0.89-1.76); Thyroid Stimulating Hormone 0.36 uIU/mL (0.55-4.78)
[2025-02-13 06:26] LABS: T3,Total* 100 ng/dL (76-181)
== END | disposition home or self-care (01) ==
LOC: SCTO 11:58
PROVIDERS: PCP Family Medicine; Referring Provider Internal Medicine Hematology & Oncology; Visit Provider Internal Medicine Hematology & Oncology
DX: C92.10 Chronic myeloid leukemia, BCR/ABL-positive, not having achieved remission (principal); C92.11 Chronic myeloid leukemia, BCR/ABL-positive, in remission; D72.829 Elevated white blood cell count, unspecified
CPT/HCPCS: 36415; 84439; 84443; 84480

== ENCOUNTER 2025-02-14 13:04 | Outpatient (RCR) | payer OTHER, MEDICARE, SELFPAY | END 2025-03-09 23:59 | disposition home or self-care (01) | LOC: SCTC 13:04 | PROVIDERS: PCP Family Medicine; Referring Provider Family Medicine; Visit Provider Internal Medicine Hematology & Oncology | DX: C92.11 Chronic myeloid leukemia, BCR/ABL-positive, in remission (principal); E07.9 Disorder of thyroid, unspecified; M79.7 Fibromyalgia; F41.9 Anxiety disorder, unspecified; R51.9 Headache, unspecified; Z86.19 Personal history of other infectious and parasitic diseases | CPT/HCPCS: 99212; G0463 ==

== ENCOUNTER → 2025-02-14 | Outpatient (CLI) | payer OTHER, MEDICARE, SELFPAY ==
[2025-02-20 13:48] LABS: BCR-ABL1/ABL1 % IS 0.000 (0.000)
[2025-02-21 06:31] LABS: P210 BCR-ABL1 NOT DETECTED
== END | disposition home or self-care (01) ==
LOC: SCTO 14:35
PROVIDERS: PCP Family Medicine; Referring Provider Internal Medicine Hematology & Oncology; Visit Provider Internal Medicine Hematology & Oncology
DX: C92.10 Chronic myeloid leukemia, BCR/ABL-positive, not having achieved remission (principal); C92.11 Chronic myeloid leukemia, BCR/ABL-positive, in remission
CPT/HCPCS: 36415; 81206

== ENCOUNTER 2025-03-12 08:30 | Day surgery (SDC) | payer OTHER, MEDICARE, SELFPAY ==
--- NOTE | 2025-03-09 15:23 | EKG_ITS ---
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
[2025-03-09 15:31] LABS: INR 0.9 (0.9-1.3); Partial Thromboplastin Time 25.6 Seconds (22.0-36.0); Prothrombin Time 10.0 Seconds (9.0-12.2)
[2025-03-09 15:47] LABS: Alanine Aminotransferase < 7 U/L (10-49); Albumin, Serum 5.0 gm/dL (3.4-4.8); Albumin/Globulin Ratio 2.4 (1.2-2.2); Alkaline Phosphatase 58 U/L (46-116); Anion Gap 8 (7-16); Aspartate Amino Transferase 19 U/L (0-34); BUN/Creatinine Ratio 13 Ratio (12-20); Bilirubin,Total 0.5 mg/dL (0.3-1.2); Blood Urea Nitrogen 10 mg/dL (9-23); Calcium 10.1 mg/dL (8.3-10.6); Calcium (Corrected) 10.1 mg/dL (8.5-10.1); Carbon Dioxide 29.5 mMol/L (20.0-31.0); Chloride 104 mMol/L (98-107); Creatinine (Component) 0.8 mg/dL (0.6-1.3); Globulin 2.1 gm/dL (2.3-3.5); Glucose 80 mg/dL (74-106); Osmolality,Calculated 279 (275-295); Potassium 4.5 mMol/L (3.4-5.1); Sodium 141 mMol/L (136-145); Total Protein 7.1 gm/dL (5.7-8.2); eGFR > 60 See Note
[2025-03-09 15:50] LABS: HCG,Qualitative Serum Positive
[2025-03-12] VITALS (9 sets, daily range): BP systolic 108–156; BP diastolic 67–93; PULSE 53–70; RESP 11–20; TEMP 37.1; O2SAT 96–99; BMI 21.4
[2025-03-12] MEDS: MIDAZOLAM INJ 1 MG/ML VIAL 2 ML 2 MG IVP (09:38)
--- NOTE | 2025-03-12 10:00 | SUR.PREOP ---
at bedside speaking with patient. Patient shares concern of sores in perineum. explains to patient that he will evaluate her during the procedure. Paitient's questions answered by .
[2025-03-12] MEDS: RINGERS LACTATED 1000 ML 1,000 ML 20 ML IV (11:00)
== END 2025-03-12 12:20 | disposition home or self-care (01) ==
PROVIDERS: PCP Family Medicine; Referring Provider Specialist; Visit Provider Specialist
PROC: (CPT 43239; principal; 2025-03-12 09:45)
DX: K29.50 Unspecified chronic gastritis without bleeding (principal); K20.90 Esophagitis, unspecified without bleeding; K64.8 Other hemorrhoids; K57.30 Diverticulosis of large intestine without perforation or abscess without bleeding; Z01.810 Encounter for preprocedural cardiovascular examination
CPT/HCPCS: 43239; 36415; 80053; 84703; 85610; 85730; 93005; A4649; J2250; J7120

== ENCOUNTER 2025-04-03 11:04 | Emergency (ER) | payer OTHER, MEDICARE, SELFPAY ==
[2025-04-03 11:30] VITALS: BP 166/99; PULSE 86; RESP 21; TEMP 36.9; O2SAT 95; BMI 20.4
--- NOTE | 2025-04-03 11:35 | XR_ITS ---
EXAMINATION: XR chest 1V portable ORDERING PROVIDER: RONDA Andrea HISTORY: chest pain TECHNIQUE: Single portable AP radiograph of the chest. COMPARISON: 08/16/2024, acute abdominal series. FINDINGS: Lines and Tubes: None. Lungs: Similar right apical pleural thickening. No consolidation Pleura: No pneumothorax or pleural effusion. Cardiomediastinal Silhouette: Normal. Soft Tissues/Bones: Left upper quadrant surgical clips again seen. IMPRESSION: No acute pulmonary findings.
--- NOTE | 2025-04-03 11:35 | EKG_ITS ---
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
--- NOTE | 2025-04-03 11:35 | PD.EDRME ---
Rapid Medical Screening Exam RME Arrival date/time: 04/03/25 11:04 65-year-old female with a history of CML leukemia, hypothyroidism, hypertension, presents to the emergency room with a chief complaint of weakness, palpitations, shortness of breath, and a cough x 1 week I have greeted and performed a focused initial assessment of this patient. A comprehensive ED assessment and evaluation of the patient, analysis of all test results, and completion of the medical decision making process will be conducted by additional ED providers. Chief Complaint: Flu Like Symptoms Time Seen by Provider: 04/03/25 11:07 Vital signs: Vital Signs Temperature 98.5 F 04/03/25 11:30 Pulse Rate 86 04/03/25 11:30 Respiratory Rate 21 H 04/03/25 11:30 Blood Pressure 166/99 H 04/03/25 11:30 Pulse Oximetry (%) 95 04/03/25 11:30 Oxygen Delivery Method Room Air 04/03/25 11:30 Vital signs reviewed by provider: Yes Exam: Wheezing to the bilateral lobes Strong and regular rhythm S1 and S2 noted GCS of 15 Clinical Impression: Pneumonia/electrolyte imbalance/thyroid storm
[2025-04-03 12:46] LABS: Basophils # (Auto) 0.1 Thou/mm3 (0.0-0.2); Basophils % (Auto) 3 % (0-2.5); Eosinophils # (Auto) 0.2 Thou/mm3 (0.0-0.5); Eosinophils % (Auto) 4 % (0-10); Hematocrit 40.0 % (36.0-46.0); Hemoglobin 13.5 g/dL (12.0-16.0); Immature Granulocytes Auto 0.00 Thou/mm3 (0.00-0.00); Lymphocytes # (Auto) 2.2 Thou/mm3 (1.0-4.8); Lymphocytes % (Auto) 40 % (10-50); Mean Corpuscular HGB Conc 33.8 g/dl (31.0-37.0); Mean Corpuscular Hemoglobin 30.1 pg (25.0-35.0); Mean Corpuscular Volume 89 fL (80-100); Monocytes # (Auto) 0.9 Thou/mm3 (0.0-0.8); Monocytes % (Auto) 15 % (0-12); Neutrophils # (Auto) 2.2 Thou/mm3 (1.8-7.7); Neutrophils % (Auto) 39 % (37-80); Nucleated Red Blood Cell # 0.00 Thou/mm3 (0.00-0.00); Nucleated Red Blood Cell % 0 /100 WBC (0); Platelet Count 199 Thou/mm3 (140-440); RDW Standard Deviation 42.2 fL (36.4-46.3); Red Blood Count 4.48 Miln/mm3 (4.00-5.20); White Blood Count 5.6 Thou/mm3 (3.6-11.0)
[2025-04-03 12:53] LABS: B-Type Natriuretic Peptide 29 pg/mL (0-100)
[2025-04-03 12:58] LABS: INR 0.9 (0.9-1.3); Partial Thromboplastin Time 26.9 Seconds (22.0-36.0); Prothrombin Time 10.0 Seconds (9.0-12.2)
[2025-04-03 13:03] LABS: Collection Type, Urine Clean Catch
[2025-04-03 13:07] LABS: Bilirubin,Urine Negative (Negative); Blood,Urine Trace (Negative); Clarity,Urine Clear (Clear/Hazy); Color,Urine Lt-Yellow (Lt Yel-Yel); Culture Indicated,Urine Not Indicated; Glucose, Urine Negative (Negative); Ketones,Urine Negative (Negative); Leukocyte Esterase,Urine Positive (Negative); Nitrite,Urine Negative (Negative); PH,Urine 8.0 (5.0-7.0); Protein,Urine Negative (Neg - Trace); RBC,Urine 4 /hpf (0-3); Specific Gravity,Urine 1.013 (1.001-1.035); Squamous Epithelial Cell,Urine 2 /hpf (0-5); Urobilinogen,Urine Negative mg/dL (0.0-1.0); WBC,Urine 10 /hpf (0-5)
[2025-04-03 13:08] LABS: Alanine Aminotransferase < 7 U/L (10-49); Albumin, Serum 5.0 gm/dL (3.4-4.8); Albumin/Globulin Ratio 2.0 (1.2-2.2); Alkaline Phosphatase 62 U/L (46-116); Anion Gap 5 (7-16); Aspartate Amino Transferase 21 U/L (0-34); BUN/Creatinine Ratio 11 Ratio (12-20); Bilirubin,Total 0.3 mg/dL (0.3-1.2); Blood Urea Nitrogen 9 mg/dL (9-23); Calcium 9.8 mg/dL (8.3-10.6); Calcium (Corrected) 9.8 mg/dL (8.5-10.1); Carbon Dioxide 29.7 mMol/L (20.0-31.0); Chloride 105 mMol/L (98-107); Creatinine (Component) 0.8 mg/dL (0.6-1.3); Estimated Creatinine Clearance 47.2 mL/min (>60); Free T4 (Free Thyroxine) 1.56 ng/dL (0.89-1.76); Globulin 2.5 gm/dL (2.3-3.5); Glucose 84 mg/dL (74-106); Magnesium 1.8 mg/dL (1.6-2.6); Osmolality,Calculated 277 (275-295); Potassium 4.3 mMol/L (3.4-5.1); Sodium 140 mMol/L (136-145); Thyroid Stimulating Hormone 1.00 uIU/mL (0.55-4.78); Total Protein 7.5 gm/dL (5.7-8.2); Troponin I < 0.020 ng/mL (0.0-0.045); eGFR > 60 See Note
[2025-04-03 13:20] LABS: Amphetamine/Methamp Scrn,U Negative (Negative); Barbiturate Screen,Urine Negative (Negative); Benzodiazepines Screen,Urine Negative (Negative); Benzoylecgonine Screen, Ur Negative (Negative); Fentanyl Screen,Urine Negative (Negative); Opiate Screen,Urine Negative (Negative); THC Screen,Urine Positive (Negative)
[2025-04-03 13:26] VITALS: BP 149/89; PULSE 69; RESP 16; TEMP 36.8; O2SAT 97
--- NOTE | 2025-04-03 13:44 | PD.EDADULT ---
ED General RME/HPI General Chief complaint: Flu Like Symptoms Stated complaint: COUGH, CONGESTION, NAUSEA, BODYACHES Time Seen by Provider: 04/03/25 11:07 Arrival date/time: 04/03/25 11:04 CC: Cough and phlegm HPI ongoing for approximately 1 week. Patient was exposed to family children who are ill and not informed her of it. The patient denies fever shortness of breath difficulty breathing coughing up blood nausea vomiting or diarrhea. Patient also denies chest pain. RME / HPI RME / HPI narrative: 04/03/25 11:04 65-year-old female with a history of CML leukemia, hypothyroidism, hypertension, presents to the emergency room with a chief complaint of weakness, palpitations, shortness of breath, and a cough x 1 week I have greeted and performed a focused initial assessment of this patient. A comprehensive ED assessment and evaluation of the patient, analysis of all test results, and completion of the medical decision making process will be conducted by additional ED providers. Exam: Wheezing to the bilateral lobes Strong and regular rhythm S1 and S2 noted GCS of 15 Impression: Pneumonia/electrolyte imbalance/thyroid storm Related Data Home Medications ?Medication ?Instructions ?Recorded ?Confirmed dasatinib 20 mg tablet (Sprycel) 20 mg PO DAILY 06/04/23 03/12/25 hydrochlorothiazide 25 mg tablet 25 mg PO QDAY 11/27/24 03/12/25 hydroxyzine pamoate 50 mg capsule 50 mg PO QDAY 11/27/24 03/12/25 mirtazapine 7.5 mg tablet 7.5 mg PO DAILY 11/27/24 03/12/25 pregabalin 100 mg capsule 100 mg PO Q12H 11/27/24 03/12/25 clonazepam 0.5 mg tablet 0.25 mg PO Q12H PRN anxiety 03/12/25 03/12/25 Held on 03/12/25. Instructions: Resume on 03/13/25. levothyroxine 75 mcg tablet 75 mcg PO DAILY 03/12/25 03/12/25 Allergies Allergy/AdvReac Type Severity Reaction Status Date / Time codeine Allergy Severe Hives Verified 03/12/25 09:45 hydromorphone Allergy Severe REDDENED, Verified 03/12/25 09:45 TATIANNA Review of Systems Review of Systems Narrative Review of Systems: GEN: No fever, no chills, no weight loss EYES: No discharge, no visual changes, no pain HEENT: No ear pain, no congestion, no sore throat PULM: No shortness of breath, + cough, no congestion CV: No chest pain, no dyspnea on exertion, no palpitations GI: No nausea, no vomiting, no diarrhea, no pain, no constipation : No frequency, no urgency, no dysuria MUSC/SKEL: No joint pain, no back pain SKIN: No rash PSYCH: No hallucinations, no depression HEME/LYMPH: No easy bleeding or bruising tendencies NEURO: No weakness, no headache Past Medical History Past Medical History NEUROLOGIC: Positive Neurological Disorders and Seizures (2013); Negative Migraine or Head Trauma CARDIAC: Positive Cardiac Disorders (palpatations), Myocardial Infarction, Deep Vein Thrombosis and Hypertension; Negative Hypercholesterolemia or Congestive Heart Failure RESPIRATORY: Negative Chronic Obstructive Pulmonary Disease (COPD) or Asthma GASTROINTESTINAL: Positive Gastrointestinal Disorders, Gastrointestinal Bleed, Diverticulitis, Diverticulosis, Obstructive Bowel, Hemorrhoids and Gastroesophageal Reflux Disease; Negative Hepatitis or Colorectal Cancer GENITOURINARY: Positive Genitourinary Disorders and Dialysis (temporary during hospitalization 2013); Negative Renal Disease REPRODUCTIVE: Positive Previous Pregnancies; Negative Breast Cancer, Genital Herpes, Gonorrhea or Syphilis MUSCULOSKELETAL: Positive Arthritis, Degenerative Disk Disease and Fibromyalgia; Negative Musculoskeletal Disorders or Bone Cancer ENT: Positive Deafness; Negative Head Trauma ENDOCRINE: Positive Endocrine Disorders and Hypothyroidism; Negative Diabetes Mellitus Type 1 or Diabetes Mellitus Type 2 HEMATOLOGIC: Positive Blood Disorders, Anemia and Leukemia; Negative Hemophilia, Thalassemia, Sickle Cell Disease or Clotting Problems PSYCHO/SOCIAL: Positive Depression and Anxiety OTHER HISTORY: Positive Shingles, Blood Transfusions, Chemotherapy, Chicken Pox, Measles, Mumps and Cancer (leukemia); Negative Hospitalization, Autoimmune Disease, Down Syndrome, Developmental Delay, Falls, Blood Transfusion Reaction, Anesthesia Reactions, Organ Transplant, Radiation Therapy, Hyperbaric Therapy, MRSA, VRSA, Vancomycin-Resistant Enterococci, Human Immunodeficiency Virus (HIV), Rubella ([place] Measles), Pertussis, Clostridium Difficile, Breast Cancer, Cervical Cancer, Colorectal Cancer, Lung Cancer or Ovarian Cancer Family History FAMILY HISTORY: Positive Family Psychiatric Problems, Family Cardiac Disorders and Family Gastrointestinal Problems; Negative Family Respiratory Disorders, Family Cancer, Family Surgery or Family Anesthesia Reaction Surgical History SURGICAL: Positive Cardiac Surgery, Angiogram, Cochlear Implant (left), Bowel Surgery (perforated bowel 2014 and colostomy reversal), Tubal Ligation and Section (x2); Negative Organ Transplant Social History SMOKING STATUS: Never smoker SUBSTANCE USE: does not use ED Exam Narrative Physical exam: [General: Thin but not emaciated anxious but not in any acute distress Head normocephalic HEENT: Within acceptable limits Neck is supple nontender Chest equal chest rise nontender to palpation Respiratory: Clear to auscultation no wheezes crackles or rubs CV: Rate rhythm is regular no murmurs rubs or clicks Abdomen is flat, soft nontender no masses positive bowel sounds all 4 quadrants Back: No CVA tenderness no spinous process tenderness from cervical spine thoracic and lumbar spine Skin: Intact no petechiae rash induration ulceration or crepitus Extremities: Moving all extremity against resistance cap refill less than 2 seconds neurosensory intact Neuro: Awake alert oriented x3 Glascow coma 15 no focal deficits] Course Quality Measures none Orders Category Date Time Status EKG (ED ONLY) *Do not use* NOW Care 04/03/25 11:35 Completed EKG (ED Only) Stat Exams 04/03/25 11:35 Ordered XR chest 1V portable Stat Exams 04/03/25 11:35 Completed B-Type Natriuretic Peptide Stat Lab 04/03/25 12:18 Completed CBC Stat Lab 04/03/25 12:18 Completed Comprehensive Metabolic Panel Stat Lab 04/03/25 12:18 Completed Drug Screen,Urine Stat Lab 04/03/25 12:39 Completed Free T4 (Free Thyroxine) Stat Lab 04/03/25 12:18 Completed Magnesium Stat Lab 04/03/25 12:18 Completed Partial Thromboplastin Time Stat Lab 04/03/25 12:18 Completed Prothrombin Time with INR Stat Lab 04/03/25 12:18 Completed TSH [Thyroid Stimulating Hormone] Stat Lab 04/03/25 12:18 Completed Troponin I Stat Lab 04/03/25 12:18 Completed Urinalysis, C/S if Indicated Stat Lab 04/03/25 12:39 Completed Vital Signs Vital signs: Vital Signs Temperature 98.5 F 04/03/25 11:30 Pulse Rate 86 04/03/25 11:30 Respiratory Rate 21 H 04/03/25 11:30 Blood Pressure 166/99 H 04/03/25 11:30 Pulse Oximetry (%) 95 04/03/25 11:30 Oxygen Delivery Method Room Air 04/03/25 11:30 Discharge Plan Plan Patient Disposition: HOME (Self Care) Patient condition on transfer: Stable Prescriptions/Referrals Prescriptions/Med Rec: No Action dasatinib [Sprycel] 20 mg tablet 20 mg PO DAILY levothyroxine 75 mcg tablet 75 mcg PO DAILY Patient Comments: TAKE 1 TABLET BY MOUTH EVERY MORNING 30 MINUTES BEFORE FOOD clonazepam 0.5 mg tablet 0.25 mg PO Q12H PRN (Reason: anxiety) hydrochlorothiazide 25 mg tablet 25 mg PO QDAY hydroxyzine pamoate 50 mg capsule 50 mg PO QDAY mirtazapine 7.5 mg tablet 7.5 mg PO DAILY pregabalin 100 mg capsule 100 mg PO Q12H Referrals: Jose L Chavez MD [Primary Care Provider, Family Practice] - In 1 week Problem List Clinical Impression: Cough, Viral syndrome Patient/Caregiver Discharge Instructions Education Materials: ED Cough Chronic Uncertain Cause Adult, ED Viral Syndrome (Adult) Additional Instructions: Rest, wear a mask for the next 2 weeks. Drink plenty of water take all your medications if there is a worsening of symptoms including the spike of the fever return to the emergency room medially for further evaluation. Print Language: Spanish Stand Alone Forms: [employer] Info., Work/School Release, Patient Portal Info Letter PA/RONDA Supervising Physician PA/RONDA Supervising Physician: Salvador Feldman ENP MDM Clinical Information Provided by: patient Medical Records reviewed [facility] Meds/Rx considered, not ordered None Labs/Rad/Tests considered, not ordered None Chronic Illness/Social Conditions Explain: CML EKG Interpretation EKG #1: EKG Interpretation: EKG performed at 1140 shows a ventricular rate of 73 [place] interval 168 QRS of 8 0 QTc of 407 the sinus rhythm. Labs Labs: interpreted by [place] Lab(s) Interpretation(s): CBC shows no acute leukocytosis anemia thrombocytopenia Coags within acceptable limits CMP shows no significant electrolyte imbalances renal impairment transaminitis or T. bili elevation Troponin and BNP within acceptable limits TSH and free T4 within excepted limits Urine is negative for UTI UDS is negative other than THC. Imaging Imaging interpretation: interpreted by [place] Imaging Interpretation(s): Chest x-ray is negative for any acute finding. Diagnosis Differential Diagnosis ED Complaint MDM: Pneumonia pancytopenia sepsis
== END 2025-04-03 14:23 | disposition home or self-care (01) ==
PROVIDERS: Nurse Practitioner Family; Emergency Provider Emergency Medicine; PCP Family Medicine
DX: B34.9 Viral infection, unspecified (principal); I10 Essential (primary) hypertension; I25.2 Old myocardial infarction
CPT/HCPCS: 36415; 71045; 80053; 80307; 81001; 83735; 83880; 84439; 84443; 84484; 85025; 85610; 85730; 93005; 99283

== ENCOUNTER → 2025-04-20 | Outpatient (CLI) | payer OTHER, MEDICARE, SELFPAY ==
[2025-04-20 16:24] LABS: Basophils # (Auto) 0.1 Thou/mm3 (0.0-0.2); Basophils % (Auto) 2 % (0-2.5); Eosinophils # (Auto) 0.4 Thou/mm3 (0.0-0.5); Eosinophils % (Auto) 6 % (0-10); Hematocrit 40.8 % (36.0-46.0); Hemoglobin 13.5 g/dL (12.0-16.0); Immature Granulocytes Auto 0.01 Thou/mm3 (0.00-0.00); Lymphocytes # (Auto) 2.4 Thou/mm3 (1.0-4.8); Lymphocytes % (Auto) 38 % (10-50); Mean Corpuscular HGB Conc 33.1 g/dl (31.0-37.0); Mean Corpuscular Hemoglobin 30.1 pg (25.0-35.0); Mean Corpuscular Volume 91 fL (80-100); Monocytes # (Auto) 0.5 Thou/mm3 (0.0-0.8); Monocytes % (Auto) 8 % (0-12); Neutrophils # (Auto) 2.9 Thou/mm3 (1.8-7.7); Neutrophils % (Auto) 46 % (37-80); Nucleated Red Blood Cell # 0.00 Thou/mm3 (0.00-0.00); Nucleated Red Blood Cell % 0 /100 WBC (0); Platelet Count 273 Thou/mm3 (140-440); RDW Standard Deviation 44.2 fL (36.4-46.3); Red Blood Count 4.49 Miln/mm3 (4.00-5.20); White Blood Count 6.4 Thou/mm3 (3.6-11.0)
[2025-04-20 16:40] LABS: Glucose Estimated Average 105 mg/dL (80-131); Hemoglobin A1C 5.3 % Hgb (4.8-6.0)
[2025-04-20 16:57] LABS: Alanine Aminotransferase 7 U/L (10-49); Albumin, Serum 4.8 gm/dL (3.4-4.8); Albumin/Globulin Ratio 1.8 (1.2-2.2); Alkaline Phosphatase 57 U/L (46-116); Anion Gap 8 (7-16); Aspartate Amino Transferase 21 U/L (0-34); BUN/Creatinine Ratio 11 Ratio (12-20); Bilirubin,Total 0.5 mg/dL (0.3-1.2); Blood Urea Nitrogen 10 mg/dL (9-23); Calcium 9.9 mg/dL (8.3-10.6); Calcium (Corrected) 9.9 mg/dL (8.5-10.1); Carbon Dioxide 30.2 mMol/L (20.0-31.0); Cardiac Risk Estimate 4.6 RATIO (3.7-5.6); Chloride 105 mMol/L (98-107); Cholesterol 283 mg/dL (132-200); Creatinine (Component) 0.9 mg/dL (0.6-1.3); Free T3 3.1 pg/mL (2.3-4.2); Free T4 (Free Thyroxine) 1.62 ng/dL (0.89-1.76); Globulin 2.7 gm/dL (2.3-3.5); Glucose 85 mg/dL (74-106); HDL Cholesterol 62 mg/dL (40-60); LDL Cholesterol,Calculated 176 mg/dL (0-130); Osmolality,Calculated 282 (275-295); Potassium 4.1 mMol/L (3.4-5.1); Sodium 143 mMol/L (136-145); Thyroid Stimulating Hormone 0.77 uIU/mL (0.55-4.78); Total Protein 7.5 gm/dL (5.7-8.2); Triglycerides 224 mg/dL (30-150); eGFR > 60 See Note
[2025-04-20 22:01] LABS: Vitamin B12 537 pg/mL (211-911); Vitamin D 25 Hydroxy Total 51.4 ng/mL (7.3-40.2)
== END | disposition home or self-care (01) ==
LOC: COPL 13:39
PROVIDERS: PCP Family Medicine; Referring Provider Family Medicine; Visit Provider Family Medicine
DX: E78.2 Mixed hyperlipidemia (principal); D64.9 Anemia, unspecified; R73.01 Impaired fasting glucose; I10 Essential (primary) hypertension; E03.9 Hypothyroidism, unspecified; E53.8 Deficiency of other specified B group vitamins; E55.9 Vitamin D deficiency, unspecified; R53.83 Other fatigue
CPT/HCPCS: 36415; 80053; 80061; 82306; 82607; 83036; 84439; 84443; 84481; 85025

== ENCOUNTER → 2025-04-30 | Outpatient (CLI) | payer OTHER, MEDICARE, SELFPAY ==
[2025-04-30 15:28] LABS: Cardiac Risk Estimate 4.4 RATIO (3.7-5.6); Cholesterol 283 mg/dL (132-200); Free T3 2.7 pg/mL (2.3-4.2); Free T4 (Free Thyroxine) 1.41 ng/dL (0.89-1.76); HDL Cholesterol 64 mg/dL (40-60); LDL Cholesterol,Calculated 194 mg/dL (0-130); Thyroid Stimulating Hormone 0.39 uIU/mL (0.55-4.78); Triglycerides 126 mg/dL (30-150); Vitamin B12 572 pg/mL (211-911); Vitamin D 25 Hydroxy Total 51.0 ng/mL (7.3-40.2)
== END | disposition home or self-care (01) ==
LOC: COPL 13:47
PROVIDERS: Referring Provider Internal Medicine Endocrinology, Diabetes & Metabolism; Visit Provider Internal Medicine Endocrinology, Diabetes & Metabolism
DX: R79.89 Other specified abnormal findings of blood chemistry (principal); C92.20 Atypical chronic myeloid leukemia, BCR/ABL-negative, not having achieved remission; E04.1 Nontoxic single thyroid nodule; K59.09 Other constipation
CPT/HCPCS: 36415; 80061; 82306; 82607; 84439; 84443; 84481

== ENCOUNTER → 2025-05-01 | Outpatient (CLI) | payer OTHER, MEDICARE, SELFPAY ==
[2025-05-01 13:16] LABS: Basophils # (Auto) 0.1 Thou/mm3 (0.0-0.2); Basophils % (Auto) 2 % (0-2.5); Eosinophils # (Auto) 0.3 Thou/mm3 (0.0-0.5); Eosinophils % (Auto) 4 % (0-10); Hematocrit 36.1 % (36.0-46.0); Hemoglobin 12.4 g/dL (12.0-16.0); Immature Granulocytes Auto 0.01 Thou/mm3 (0.00-0.00); Lymphocytes # (Auto) 3.2 Thou/mm3 (1.0-4.8); Lymphocytes % (Auto) 50 % (10-50); Mean Corpuscular HGB Conc 34.3 g/dl (31.0-37.0); Mean Corpuscular Hemoglobin 30.5 pg (25.0-35.0); Mean Corpuscular Volume 89 fL (80-100); Monocytes # (Auto) 0.6 Thou/mm3 (0.0-0.8); Monocytes % (Auto) 10 % (0-12); Neutrophils # (Auto) 2.1 Thou/mm3 (1.8-7.7); Neutrophils % (Auto) 34 % (37-80); Nucleated Red Blood Cell # 0.00 Thou/mm3 (0.00-0.00); Nucleated Red Blood Cell % 0 /100 WBC (0); Platelet Count 179 Thou/mm3 (140-440); RDW Standard Deviation 43.4 fL (36.4-46.3); Red Blood Count 4.07 Miln/mm3 (4.00-5.20); White Blood Count 6.3 Thou/mm3 (3.6-11.0)
[2025-05-01 13:27] LABS: Alanine Aminotransferase 8 U/L (10-49); Albumin, Serum 4.5 gm/dL (3.4-4.8); Albumin/Globulin Ratio 1.6 (1.2-2.2); Alkaline Phosphatase 56 U/L (46-116); Anion Gap 6 (7-16); Aspartate Amino Transferase 20 U/L (0-34); BUN/Creatinine Ratio 16 Ratio (12-20); Bilirubin,Total 0.4 mg/dL (0.3-1.2); Blood Urea Nitrogen 11 mg/dL (9-23); Calcium 9.6 mg/dL (8.3-10.6); Calcium (Corrected) 9.6 mg/dL (8.5-10.1); Carbon Dioxide 30.8 mMol/L (20.0-31.0); Chloride 105 mMol/L (98-107); Creatinine (Component) 0.7 mg/dL (0.6-1.3); Globulin 2.8 gm/dL (2.3-3.5); Glucose 79 mg/dL (74-106); Osmolality,Calculated 281 (275-295); Potassium 3.8 mMol/L (3.4-5.1); Sodium 142 mMol/L (136-145); Total Protein 7.3 gm/dL (5.7-8.2); eGFR > 60 See Note
[2025-05-04 19:50] LABS: BCR-ABL1 Source BLOOD; BCR-ABL1/ABL1 % IS 0.000 (0.000)
[2025-05-07 07:10] LABS: P210 BCR-ABL1 NOT DETECTED
== END | disposition home or self-care (01) ==
LOC: COPL 11:58 → SCTO 12:06
PROVIDERS: Referring Provider Internal Medicine Hematology & Oncology; Visit Provider Internal Medicine Hematology & Oncology
DX: D72.829 Elevated white blood cell count, unspecified (principal)
CPT/HCPCS: 36415; 80053; 81206; 85025